=== PATIENT | female | born 1995 | race Caucasian/White ===

== ENCOUNTER → 2017-06-22 | Outpatient (CLI) | payer OTHER ==
--- NOTE | 2017-06-22 10:21 | MR ---
EXAMINATION TYPE: MR brain wo/w con DATE OF EXAM: 06/22/2017 COMPARISON: NONE HISTORY: 21-year-old female with headache TECHNIQUE: Multiplanar, multisequence images of the brain and brainstem were acquired before and aft er administration of 6.5 mL IV Gadavist. Diffusion weighted imaging is performed. FINDINGS: No evidence for acute infarction, hemorrhage, mass, mass effect, midline shift, herniation, effacemen t of basal cisterns, or extra-axial fluid collection. The ventricles and sulci are age-appropriate. Major intracranial flow voids are intact. T2/FLAIR weighted sequences show no white matter signal abnormality. Midline structures demonstrate normal morphology. The craniocervical junction is normal. Post contrast images demonstrate no evidence of pathologic enhancement. Dural venous sinuses are pat ent. There is mild mucosal thickening in the ethmoid air cells. Rightward nasal septal deviation. Mastoid air cells well pneumatized. The globes are intact. IMPRESSION: 1. No intracranial abnormality seen. 2. Mild chronic ethmoid sinus disease and slight rightward nasal septal deviation.
== END | disposition home or self-care (01) ==
LOC: RADMRIMAIN 07:54
PROVIDERS: ATTEND Family Medicine
DX: J34.2 Deviated nasal septum (principal); R51 Headache
CPT/HCPCS: 70553; A9581

== ENCOUNTER 2019-05-04 17:09 | Outpatient (CLI) | payer BC, OTHER ==
[2019-05-04 18:25] VITALS: BP 112/62; PULSE 75; RESP 16; TEMP 97.3
--- NOTE | 2019-05-06 07:54 | P.MSEPDOC ---
Presenting Problems - Arrival Data Date of Arrival on Unit: 05/04/19 Time of Arrival on Unit: 17:09 Mode of Transport: Ambulatory - Complaint OB-Reason for Admission/Chief Complaint: Rule Out PROM Medical History - Information : 1 Para: 0 Term: 0 : 0 Abortions: Spontaneous or Elective: 0 Number of Living Children: 0 - Gestational Age Gestational Age by SHARAN (wks/days): 37 Weeks and 3 Days - History Complications: Other Comment: chicken pox during 12/13 Review of Systems - Review of Systems Constitutional: No problems Breast: No problems ENT: No problems Cardiovascular: No problems Respiratory: No problems Gastrointestinal: No problems Genitourinary: No problems Musculoskeletal: No problems Neurological: No problems Skin: No problems Vital Signs - Temperature Temperature: 97.3 F Temperature Source: Oral - Pulse Right Sitting Brachial Pulse Rate: 75 Pulse Assessment Method: Automatic Cuff - Respirations Respiratory Rate: 16 - Blood Pressure Right Arm Blood Pressure: 112/62 Blood Pressure Mean: 78 Blood Pressure Source: Automatic Cuff Medical Screen Scoring (Pre) - Cervical Exam Dilation: 1-3 cm = 1 Effacement: More than 50% = 2 Membranes: Intact - Uterine Contractions Frequency: > 5 minutes apart = 1 Duration: N/A Intensity: N/A - Maternal Vital Signs Maternal Temperature: N/A Maternal Blood Pressure: N/A Signs of Preeclampsia: N/A Maternal Respirations: N/A - Maternal Trauma Maternal Trauma: N/A - Assessment - Baby A Baseline FHR: 140 Heart Rate - NICHD Category: Category I (Normal) = 0 NST: Reactive Position: N/A Station: N/A - Total Score - Baby A Total Score - Baby A: 4 - Total Score - Baby B Total Score - Baby B: 4 - Total Score - Baby C Total Score - Baby C: 4 - Level of Risk - Baby A Level of Risk - Baby A: Low (0-5) - Level of Risk - Baby B Level of Risk - Baby B: Low (0-5) - Level of Risk - Baby C Level of Risk - Baby C: Low (0-5) Physician Notification (Pre) - Physician Notified Physician Notified Date: 05/04/19 Physician Notified Time: 18:08 New Order Received: Yes (discharged home with instructions) Disposition - Disposition OB Disposition: Discharge to home, Written follow up instructions reviewed Discharge Date: 05/04/19 Discharge Time: 18:15 I agree with the RN Medical Screening Exam: Yes Risk & Benefit of care provided described in d/c instruction: Yes Diagnosis: FALSE LABOR AT OR AFTER 37 COMPLETED WEEKS OF GESTATION
== END 2019-05-04 18:15 | disposition home or self-care (01) ==
LOC: FBPOP 17:09
PROVIDERS: ATTEND Obstetrics & Gynecology
DX: O47.1 False labor at or after 37 completed weeks of gestation (principal); Z3A.37 37 weeks gestation of pregnancy
CPT/HCPCS: 59025; 84112; 99213

== ENCOUNTER 2019-05-15 04:45 | Inpatient (IN) | payer BC, OTHER ==
[2019-05-15] MEDS ORDERED: TERBUTALINE 1 MG/ML VIAL SQ PRN (05:03)
[2019-05-15] MEDS ORDERED: OXYTOCIN 10 UNIT/ML 1 ML VIAL IM PRN (05:03)
[2019-05-15] MEDS ORDERED: OXYTOCIN 30 UNITS/500 ML NS 30 UNIT in SALINE 1 500ML.BAG IV SCH (05:03)
[2019-05-15] MEDS ORDERED: METHYLERGONOVINE 0.2 MG/ML 1 ML AMP IM PRN (05:03)
[2019-05-15] MEDS ORDERED: CARBOPROST TROMETHAMINE 250 MCG/ML 1 ML AMP IM PRN (05:03)
[2019-05-15] MEDS ORDERED: LIDOCAINE 0.5% (PF) 5 MG/ML (50 ML SDV) SQ PRN (05:03)
[2019-05-15 05:13] VITALS: BMI 24.1
[2019-05-15] MEDS: LACTATED RINGERS 1,000 ML IV SCH ×3 (05:15→13:29)
[2019-05-15 05:32] LABS: Basophils # (A) 0.1 k/uL (0-0.2); Basophils % (A) 1 %; Eosinophils # (A) 0.1 k/uL (0-0.7); Eosinophils % (A) 1 %; HCT 38.3 % (34.0-46.0); HGB 12.8 gm/dL (11.4-16.0); Lymphocytes # (A) 1.4 k/uL (1.0-4.8); Lymphocytes % (A) 16 %; MCH 28.2 pg (25.0-35.0); MCHC 33.4 g/dL (31.0-37.0); MCV 84.4 fL (80.0-100.0); Mean Platelet Volume 8.8; Monocytes # (A) 0.6 k/uL (0-1.0); Monocytes % (A) 7 %; Neutrophils # (A) 6.8 k/uL (1.3-7.7); Neutrophils % (A) 74 %; Platelet Count 182 k/uL (150-450); RBC 4.53 m/uL (3.80-5.40); RDW 13.6 % (11.5-15.5); WBC 9.2 k/uL (3.8-10.6)
--- NOTE | 2019-05-15 06:27 | P.HPOB ---
History of Present Illness H&P Date: 05/15/19 Chief Complaint: Contractions This patient is a pleasant 23-year-old 1 para 0 female estimated date of confinement 05/22/2019 estimated gestational age 39 weeks who presented to labor and delivery this morning with complaints of contractions. Patient's found to be 5 cm dilated in active labor. Patient's care is such that she transferred to [place] at 23 weeks. She did report an exposure to varicella and therefore titers were done which showed a positive IgM. She was sent to maternal- medicine and evaluation there was negative and they did not have concerns. Patient had a previous parasellar vaccine. Level III ultrasound was normal and patient did do nonstress testing throughout the . Review of Systems Genitourinary: Reports Menstruation: Reports amenorrhea Past Medical History Additional Past Medical History / Comment(s): migraines History of Any Multi-Drug Resistant Organisms: None Reported Past Surgical History: No Surgical Hx Reported Additional Past Surgical History / Comment(s): [place] tooth extraction Past Anesthesia/Blood Transfusion Reactions: No Reported Reaction Past Psychological History: No Psychological Hx Reported Smoking Status: Never smoker Past Alcohol Use History: Occasional Additional Past Alcohol Use History / Comment(s): ETOH is social use only Past Drug Use History: None Reported - Past Family History Mother Family Medical History: Cancer Additional Family Medical History / Comment(s): Breast Cancer Medications and Allergies Home Medications Medication Instructions Recorded Confirmed Type Pnv No.95/Ferrous Fum/Folic AC 1 tab PO DAILY 05/04/19 05/15/19 History [ Multivitamin Tablet] Allergies Allergy/AdvReac Type Severity Reaction Status Date / Time No Known Allergies Allergy Verified 05/15/19 05:03 Exam Vital Signs Temp Pulse Resp BP 05/15/19 05:06 97.3 F L 65 16 109/65 Intake and Output 05/14/19 05/14/19 05/15/19 14:59 22:59 06:59 Other: # Voids 1 Weight 78.471 kg - OBG Physical Exam Abdomen: bowel sounds normal, no diffuse tenderness, no bruit present, no guarding noted, no hepatomegaly, no splenomegaly, no mass Vulva: both: normal Vagina: normal moisture, no discharge Cervix: no lesion (Cervix is 5 complete and -1 station), no discharge Uterus: enlarged (Fundal height is 39 cm) Results blood work shows she is O positive, rubella immune, RPR is nonreactive, HIV is nonreactive, hepatitis B was negative, ultrasounds have shown normal anatomy. She did have a marginal previa early in the which completely resolved. Patient's group B strep was negative, Varicella titers as above Result Diagrams: 05/15/19 05:10 Assessment and Plan Assessment: This is a pleasant 23-year-old 1 para 0 female 39 weeks gestation in active labor. Plan is anticipate normal spontaneous vaginal delivery. (1) 39 weeks gestation of Current Visit: Yes Status: Acute Code(s): Z3A.39 - 39 WEEKS GESTATION OF P CIARAN SNOMED Code(s): 56958573 (2) Normal labor Current Visit: Yes Status: Acute Code(s): O80 - ENCOUNTER FOR FULL-TERM UNCOMPLICATED DELIVERY; Z37.9 - OUTCOME OF DELIVERY, UNSPECIFIED SNOMED Code(s): 66257926
[2019-05-15] MEDS ORDERED: fentaNYL (PF) 50 MCG/ML 5 ML AMP ONE (06:45)
[2019-05-15] MEDS ORDERED: SODIUM CHLORIDE 0.9% 100 ML BAG ONE (06:45)
[2019-05-15] MEDS ORDERED: ROPIVACAINE 5MG/ML 20ML VIAL ONE (06:45)
[2019-05-15] MEDS ORDERED: ROPIVACAINE 100 MG, fentaNYL (PF) 200 MCG in SODIUM CHLORIDE 0.9% 76 ML EPIDURAL ONE (07:54)
[2019-05-15] MEDS ORDERED: diphenhydrAMINE 50 MG/ML 1 ML VIAL IVP PRN (13:27)
[2019-05-15] MEDS ORDERED: LANOLIN CREAM 5 GM TUBE TOPICAL PRN (13:27)
[2019-05-15] MEDS ORDERED: HYDROCORTISONE 2.5% RECTAL CREAM 30 GM TUBE RECTAL PRN (13:27)
[2019-05-15] MEDS ORDERED: BISACODYL 10 MG SUPP RECTAL PRN (13:27)
[2019-05-15] MEDS ORDERED: OXYTOCIN 20 UNITS/1000 ML NS 1,000 ML IV SCH (13:27)
[2019-05-15] MEDS ORDERED: BENZOCAINE/MENTHOL SPRAY 1 GM/SPRAY AEROSOL TOPICAL PRN (13:27)
[2019-05-15] MEDS ORDERED: diphenhydrAMINE 25 MG CAP PO PRN (13:27)
[2019-05-15] MEDS ORDERED: SIMETHICONE 80 MG CHEWABLE PO PRN (13:27)
[2019-05-15] MEDS ORDERED: WITCH HAZEL 1 EACH MED..PAD TOPICAL PRN (13:27)
[2019-05-15] MEDS ORDERED: ZOLPIDEM 5 MG TAB PO PRN (13:27)
--- NOTE | 2019-05-15 13:28 | P.PROBDLV ---
Vaginal Delivery Note - . Vaginal Delivery Note: Normal spontaneous vaginal delivery viable male Apgars 9 and 9 delivery time is 1310. Please see dictated H&P for intimate details of this patient's admission. Brief summary this is a pleasant 23-year-old 1 para 0 female 39 weeks gestation admitted to labor and delivery in active labor. Patient is 5 cm dilated has artificial rupture membranes for clear fluid. Labor progresses and she does get an epidural for pain control. Patient gets to complete pushes for approximately 45 minutes. Patient pushes the head to the perineum the posterior perineum is supported we have controlled delivery of the infant's head over the intact perineum mouth and nares are bulb suctioned at this time. There is no evidence of nuchal cord. With gentle downward traction we then have deliver the anterior and posterior shoulder and rest this infant's body. This is a vigorous viable male infant Apgars 9 and 9 delivery time is 1310 hrs. After delivery of the is late on the mother's abdomen. Umbilical cords locked quit pulsating. Sent doubly clamped and cut appears to be trivascular. Placenta spontaneously delivered intact. Estimated blood loss 150 mL. Inspection of perineum shows second-degree laceration which is repaired using a 3-0 Vicryl usual fashion. Excellent reapproximation is noted. All counts are correct 3. There are no complications. and mother are stable delivery room.
[2019-05-15] MEDS: IBUPROFEN 600 MG TAB PO PRN ×2 (15:20→22:46)
[2019-05-15] MEDS: SENNOSIDES-DOCUSATE SODIUM 1 EACH TAB PO SCH ×2 (16:23→19:29)
[2019-05-15] MEDS: ACETAMINOPHEN TAB 325 MG TAB PO PRN (19:30)
[2019-05-16] MEDS: ACETAMINOPHEN TAB 325 MG TAB PO PRN ×2 (02:30→11:27)
--- NOTE | 2019-05-16 06:32 | P.PNOBGVD ---
Subjective - Subjective Patient reports: Reports appetite normal, Reports voiding normally, Reports pain well controlled, Reports ambulating normally : doing well Objective - Latest Vital Signs Latest vital signs: Vital Signs Temp Pulse Resp BP 05/15/19 23:55 97.9 F 72 16 115/57 05/15/19 20:00 98.1 F 78 16 103/65 05/15/19 15:29 98.0 F 85 16 105/63 05/15/19 14:59 83 16 110/62 05/15/19 14:29 80 16 106/57 05/15/19 14:14 80 16 111/62 05/15/19 13:59 80 16 110/58 05/15/19 13:44 74 16 108/58 05/15/19 13:29 97.5 F L 83 16 105/64 Intake and Output 05/15/19 05/15/19 05/16/19 14:59 22:59 06:59 Intake Total 1900 Balance 1900 Intake: IV 900 Invasive Line 1 900 Intake, IV Titration 1000 Amount Lactated Ringers 1,000 ml 1000 @ 125 mls/hr IV .Q8H [facility] Rx#:[id number] Other: # Voids 1 1 - Exam Lungs: bilateral: normal Chest: Normal S1, Normal S2 Extremities: Present: normal Abdomen: Present: normal appearance, soft Uterus: Present: normal, firm Assessment and Plan Assessment: Patient is resting without complaints. Vital signs are stable she is afebrile. Uterus is firm nontender she's having normal lochia. Perineum appears normal. I impression is a normal course. Patient does request to go home today she felt be stable for discharge home follow up with me in 6 weeks. (1) 39 weeks gestation of Current Visit: Yes Status: Acute Code(s): Z3A.39 - 39 WEEKS GESTATION OF SNOMED Code(s): 84138128 (2) Normal labor Current Visit: Yes Status: Acute Code(s): O80 - ENCOUNTER FOR FULL-TERM UNCOMPLICATED DELIVERY; Z37.9 - OUTCOME OF DELIVERY, UNSPECIFIED SNOMED Code(s): 33387343
--- NOTE | 2019-05-16 06:36 | P.DS ---
Providers Date of admission: 05/15/19 04:45 Expected date of discharge: 05/16/19 Attending physician: Russel Laguna Primary care physician: Stated None - Discharge Diagnosis(es) (1) 39 weeks gestation of Current Visit: Yes Status: Acute (2) Normal labor Current Visit: Yes Status: Acute Hospital Course: Please see dictated H&P for intimate details of this patient's admission. Brief summary this is a pleasant 23-year-old 1 para 0 female 39 weeks gestation admitted to labor and delivery in active labor. Patient was on have a vaginal delivery viable male infant. Please see dictated delivery note. day 1 patient wishes to go home was felt be stable for discharge home follow up with me in 6 weeks. Procedures: Normal spontaneous vaginal delivery Patient Condition at Discharge: Good Plan - Discharge Summary New Discharge Prescriptions: New Ibuprofen [Motrin] 600 mg PO Q6HR PRN #40 tab PRN Reason: Mild Pain Or Fever >= 100.5 No Action Pnv No.95/Ferrous Fum/Folic AC [ Multivitamin Tablet] 1 tab PO DAILY Discharge Medication List Pnv No.95/Ferrous Fum/Folic AC [ Multivitamin Tablet] 1 tab PO DAILY 05/04/19 [History] Ibuprofen [Motrin] 600 mg PO Q6HR PRN #40 tab 05/16/19 [Rx] Follow up Appointment(s)/Referral(s): Russel Laguna MD [STAFF PHYSICIAN] - 06/28/19 9:30 am Patient Instructions/Handouts: Vaginal Delivery (DC) Activity/Diet/Wound Care/Special Instructions: No intercourse or anything per vagina for 6 weeks. Please call if any fever, chills, excessive vaginal bleeding, and/or abdominal pain.
[2019-05-16] MEDS: SENNOSIDES-DOCUSATE SODIUM 1 EACH TAB PO SCH (08:03)
[2019-05-16] MEDS: IBUPROFEN 600 MG TAB PO PRN ×2 (08:04→13:33)
[2019-05-16 09:57] VITALS: BP 112/72; PULSE 81; RESP 20; TEMP 98.2
== END 2019-05-16 16:00 | disposition home or self-care (01) | DRG 807 ==
LOC: 4FBP 04:45
PROVIDERS: ADMIT Obstetrics & Gynecology; ATTEND Obstetrics & Gynecology
PROC: 10E0XZZ Delivery of Products of Conception, External Approach (ICD-10-PCS; principal; 2019-05-15)
PROC: 0KQM0ZZ Repair Perineum Muscle, Open Approach (ICD-10-PCS; 2019-05-15)
DX: O99.354 Diseases of the nervous system complicating childbirth (principal); Z37.0 Single live birth; G43.909 Migraine, unspecified, not intractable, without status migrainosus; O70.1 Second degree perineal laceration during delivery; Z3A.39 39 weeks gestation of pregnancy; Z80.3 Family history of malignant neoplasm of breast
CPT/HCPCS: 85025; 86850; 86900; 86901

== ENCOUNTER 2019-06-17 20:25 | Emergency (ER) | payer BC, OTHER ==
[2019-06-17 20:55] VITALS: TEMP 98.9
[2019-06-17] MEDS ORDERED: SODIUM CHLORIDE 0.9% 1,000 ML IV STA (21:08)
[2019-06-17] MEDS ORDERED: KETOROLAC 30 MG/ML 1 ML VIAL IVP STA (21:08)
--- NOTE | 2019-06-17 21:19 | ED ---
General Adult HPI - General Chief complaint: Abdominal Pain Stated complaint: Abd pain Time Seen by Provider: 06/17/19 20:56 Source: patient, family, RN notes reviewed Mode of arrival: ambulatory Limitations: no limitations - History of Present Illness Initial comments: 23-year-old female with a past medical history of migraine presents to the emergency department for a chief complaint of right lower quadrant abdominal pain. States this has been ongoing for a few days. States it feels like it is cramping in nature. Patient states she is having a bit of brown vaginal discharge. Patient is about one month with a vaginal delivery. Den ies fevers or chills. Denies dysuria. Denies NVD. States the pain radiates to the right side of her low back.Patient has no other complaints at this time including shortness of breath, chest pain, nausea or vomiting, headache, or visual changes. - Related Data Home Medications Medication Instructions Recorded Confirmed Pnv No.95/Ferrous Fum/Folic AC 1 tab PO DAILY 05/04/19 05/15/19 [ Multivitamin Tablet] Previous Rx's Medication Instructions Recorded Ibuprofen [Motrin] 600 mg PO Q6HR PRN #40 tab 05/16/19 Allergies Allergy/AdvReac Type Severity Reaction Status Date / Time No Known Allergies Allergy Verified 06/17/19 20:55 Review of Systems ROS Statement: Those systems with pertinent positive or pertinent negative responses have been documented in the HPI. ROS Other: All systems not noted in ROS Statement are negative. Past Medical History Additional Past Medical History / Comment(s): migraines History of Any Multi-Drug Resistant Organisms: None Reported Past Surgical History: No Surgical Hx Reported Additional Past Surgical History / Comment(s): [employer] tooth extraction Past Anesthesia/Blood Transfusion Reactions: No Reported Reaction Past Psychological History: No Psychological Hx Reported Smoking Status: Never smoker Past Alcohol Use History: Occasional Past Drug Use History: None Reported - Past Family History Mother Family Medical History: Cancer Additional Family Medical History / Comment(s): Breast Cancer General Exam Limitations: no limitations General appearance: alert, in no apparent distress Head exam: Present: atraumatic, normocephalic, normal inspection Eye exam: Present: normal appearance, PERRL, EOMI. Absent: scleral icterus, conjunctival injection, periorbital swelling ENT exam: Present: normal exam, mucous membranes moist Neck exam: Present: normal inspection, full ROM. Absent: tenderness, meningismus, lymphadenopathy Respiratory exam: Present: normal lung sounds bilaterally. Absent: respiratory distress, wheezes, rales, rhonchi, stridor Cardiovascular Exam: Present: regular rate, normal rhythm, normal heart sounds. Absent: systolic murmur, diastolic murmur, rubs, gallop, clicks GI/Abdominal exam: Present: soft, normal bowel sounds. Absent: distended, tenderness (no significant tenderness to palpation of the abdomen. no rlq tendenress. no guarding or rebound), guarding, rebound, rigid Neurological exam: Present: alert Course Vital Signs 06/17/19 06/17/19 20:50 23:24 Temperature 98.9 F Pulse Rate 67 59 L Respiratory 20 16 Rate Blood Pressure 114/76 122/76 O2 Sat by Pulse 99 98 Oximetry Medical Decision Making - Medical Decision Making CBC CMP unremarkable. Urinalysis does show 20 white blood cells. Patient does not have any dysuria. This will be cultured. Ultrasound of the pelvis was obtained which shows small amount of free fluid in the cul-de-sac that could be physiologic. No evidence of torsion or adnexal mass. CT abdomen and pelvis with contrast was obtained to rule out appendicitis. This does show a normal appendix. However there is a distended distal small bowel and retained fecal material consistent with constipation. There is also minimal fat stranding in the pericolic fat at the terminal ileum consistent with mild nonspecific inflammatory process. Image and report were reviewed by both myself and Dr. Lul storey. Patient was given pain medication and has significant improvement in pain. She has no fever white blood cell count. At this time patient is stable for discharge. However recommended she return here if symptoms are worsening or if she has any fevers. Recommend she follow up with a GI doctor, referral given. Patient requesting pain medication. Patient is breast feeding but states she will formula feed for the next day. She will go home with Tylenol 3. - Lab Data Result diagrams: 06/17/19 21:21 06/17/19 21:21 Lab Results 06/17/19 06/17/19 06/17/19 Range/Units 21:21 21:21 21:21 WBC 6.4 (3.8-10.6) k/uL RBC 4.78 (3.80-5.40) m/uL Hgb 13.6 (11.4-16.0) gm/dL Hct 40.4 (34.0-46.0) % MCV 84.5 (80.0-100.0) fL MCH 28.4 (25.0-35.0) pg MCHC 33.6 (31.0-37.0) g/dL RDW 12.7 (11.5-15.5) % Plt Count 225 (150-450) k/uL Neutrophils % 72 % Lymphocytes % 15 % Monocytes % 8 % Eosinophils % 3 % Basophils % 0 % Neutrophils # 4.6 (1.3-7.7) k/uL Lymphocytes # 0.9 L (1.0-4.8) k/uL Monocytes # 0.5 (0-1.0) k/uL Eosinophils # 0.2 (0-0.7) k/uL Basophils # 0.0 (0-0.2) k/uL Sodium 140 (137-145) mmol/L Potassium 3.9 (3.5-5.1) mmol/L Chloride 107 (98-107) mmol/L Carbon Dioxide 27 (22-30) mmol/L Anion Gap 6 mmol/L BUN 8 (7-17) mg/dL Creatinine 0.66 (0.52-1.04) mg/dL Est GFR (CKD-EPI)AfAm >90 (>60 ml/min/1.73 sqM) Est GFR (CKD-EPI)NonAf >90 (>60 ml/min/1.73 sqM) Glucose 90 (74-99) mg/dL Calcium 9.4 (8.4-10.2) mg/dL Total Bilirubin 0.4 (0.2-1.3) mg/dL AST 27 (14-36) U/L ALT 19 (4-34) U/L Alkaline Phosphatase 72 (38-126) U/L Total Protein 7.7 (6.3-8.2) g/dL Albumin 4.4 (3.5-5.0) g/dL Amylase 57 (30-110) U/L Lipase 47 (23-300) U/L Urine Color Urine Appearance (Clear) Urine pH (5.0-8.0) Ur Specific [place] (1.001-1.035) Urine Protein (Negative) Urine Glucose (UA) (Negative) Urine Ketones (Negative) Urine Blood (Negative) Urine Nitrite (Negative) Urine Bilirubin (Negative) Urine Urobilinogen (<2.0) mg/dL Ur Leukocyte Esterase (Negative) Urine RBC (0-5) /hpf Urine WBC (0-5) /hpf Ur Squamous Epith Cells (0-4) /hpf Urine Mucus (None) /hpf Urine HCG, Qual Not Detected (Not Detectd) 06/17/19 Range/Units 21:21 WBC (3.8-10.6) k/uL RBC (3.80-5.40) m/uL Hgb (11.4-16.0) gm/dL Hct (34.0-46.0) % MCV (80.0-100.0) fL MCH (25.0-35.0) pg MCHC (31.0-37.0) g/dL RDW (11.5-15.5) % Plt Count (150-450) k/uL Neutrophils % % Lymphocytes % % Monocytes % % Eosinophils % % Basophils % % Neutrophils # (1.3-7.7) k/uL Lymphocytes # (1.0-4.8) k/uL Monocytes # (0-1.0) k/uL Eosinophils # (0-0.7) k/uL Basophils # (0-0.2) k/uL Sodium (137-145) mmol/L Potassium (3.5-5.1) mmol/L Chloride (98-107) mmol/L Carbon Dioxide (22-30) mmol/L Anion Gap mmol/L BUN (7-17) mg/dL Creatinine (0.52-1.04) mg/dL Est GFR (CKD-EPI)AfAm (>60 ml/min/1.73 sqM) Est GFR (CKD-EPI)NonAf (>60 ml/min/1.73 sqM) Glucose (74-99) mg/dL Calcium (8.4-10.2) mg/dL Total Bilirubin (0.2-1.3) mg/dL AST (14-36) U/L ALT (4-34) U/L Alkaline Phosphatase (38-126) U/L Total Protein (6.3-8.2) g/dL Albumin (3.5-5.0) g/dL Amylase (30-110) U/L Lipase (23-300) U/L Urine Color Yellow Urine Appearance Clear (Clear) Urine pH 7.0 (5.0-8.0) Ur Specific [place] 1.021 (1.001-1.035) Urine Protein Negative (Negative) Urine Glucose (UA) Negative (Negative) Urine Ketones Negative (Negative) Urine Blood Small H (Negative) Urine Nitrite Negative (Negative) Urine Bilirubin Negative (Negative) Urine Urobilinogen <2.0 (<2.0) mg/dL Ur Leukocyte Esterase Large H (Negative) Urine RBC 2 (0-5) /hpf Urine WBC 20 H (0-5) /hpf Ur Squamous Epith Cells 6 H (0-4) /hpf Urine Mucus Rare H (None) /hpf Urine HCG, Qual (Not Detectd) Disposition Clinical Impression: Abdominal pain, Inflammation of small intestine Disposition: HOME SELF-CARE Condition: Good Instructions (If sedation given, give patient instructions): Abdominal Pain (ED) Additional Instructions: Please take Tylenol 3 for pain. Please follow-up with primary care in 1-2 days. If you're having worsening symptoms or fevers return to the emergency department. Otherwise follow-up with GI as well. Is patient prescribed a controlled substance at d/c from ED?: No Referrals: Power Jaramillo DO [Primary Care Provider] - 1-2 days Merrick Perez MD [STAFF PHYSICIAN] - 1-2 days Time of Disposition: 23:40
[2019-06-17 21:37] LABS: Basophils % (A) 0 %; Eosinophils # (A) 0.2 k/uL (0-0.7); Eosinophils % (A) 3 %; HCT 40.4 % (34.0-46.0); HGB 13.6 gm/dL (11.4-16.0); Lymphocytes # (A) 0.9 k/uL (1.0-4.8); Lymphocytes % (A) 15 %; MCH 28.4 pg (25.0-35.0); MCHC 33.6 g/dL (31.0-37.0); MCV 84.5 fL (80.0-100.0); Monocytes # (A) 0.5 k/uL (0-1.0); Monocytes % (A) 8 %; Neutrophils # (A) 4.6 k/uL (1.3-7.7); Neutrophils % (A) 72 %; Platelet Count 225 k/uL (150-450); RBC 4.78 m/uL (3.80-5.40); RDW 12.7 % (11.5-15.5); WBC 6.4 k/uL (3.8-10.6)
[2019-06-17 21:48] LABS: Appearance,Urine Clear (Clear); Bilirubin,Urine Negative (Negative); Blood,Urine Small (Negative); Color,Urine Yellow; Glucose,Urine (UA) Negative (Negative); Ketones,Urine Negative (Negative); Leukocyte Esterase,Urine Large (Negative); Mucus,Urine Rare /hpf; Nitrite,Urine Negative (Negative); Protein,Urine Negative (Negative); RBC,Urine 2 /hpf (0-5); Specific Gravity,Urine 1.021 (1.001-1.035); Squamous Epithelial Cell,Urine 6 /hpf (0-4); Urobilinogen,Urine <2.0 mg/dL (<2.0); WBC,Urine 20 /hpf (0-5)
[2019-06-17 21:50] LABS: ALT 19 U/L (4-34); AST 27 U/L (14-36); African American GFR (CKD) >90 (>60 ml/min/1.73 sqM); Albumin 4.4 g/dL (3.5-5.0); Alkaline Phosphatase 72 U/L (38-126); Amylase 57 U/L (30-110); Anion Gap 6 mmol/L; Blood Urea Nitrogen 8 mg/dL (7-17); Calcium 9.4 mg/dL (8.4-10.2); Carbon Dioxide 27 mmol/L (22-30); Chloride 107 mmol/L (98-107); Glucose 90 mg/dL (74-99); Non-African American GFR(CKD) >90 (>60 ml/min/1.73 sqM); Potassium 3.9 mmol/L (3.5-5.1); Sodium 140 mmol/L (137-145); Total Bilirubin 0.4 mg/dL (0.2-1.3); Total Protein 7.7 g/dL (6.3-8.2)
--- NOTE | 2019-06-17 22:05 | US ---
EXAMINATION TYPE: US pelvic complete DATE OF EXAM: 06/17/2019 COMPARISON: NONE CLINICAL HISTORY: pain, RLQ, pp 1 month. TECHNIQUE: . Transabdominal sonographic images of the pelvis were acquired. Transvaginal sonographi c images were medically necessary to better assess the following anatomy: Date of LMP: EXAM MEASUREMENTS: Uterus: 7.7 x 4.6 x 5.8 cm Endometrial Stripe: 0.4 cm Right Ovary: 2.4 x 1.7 x 0.9 cm Left Ovary: 2.9 x 1.5 x 1.4 cm 1. Uterus: Anteverted wnl 2. Endometrium: 2 mm of fluid within the endometrium 3. Right Ovary: wnl 4. Left Ovary: wnl Spectral, color and waveform doppler imaging shows good arterial and venous flow within the ovaries ; there is no evidence for ovarian torsion. 5. Bilateral Adnexa: wnl 6. Posterior cul-de-sac: mild free fluid IMPRESSION: There is small amount of free fluid in the cul-de-sac that could be physiologic. No adnexal mass. No evidence of ovarian torsion.
[2019-06-17] MEDS ORDERED: MORPHINE SULFATE 4 MG/ML SYRINGE IVP STA (22:14)
--- NOTE | 2019-06-17 23:14 | CT ---
EXAMINATION TYPE: CT abdomen pelvis w con DATE OF EXAM: 06/17/2019 COMPARISON: None . HISTORY: Patient presents with RLQ pain. CT DLP: 769.8 mGycm Automated exposure control for dose reduction was used. CONTRAST: Performed with IV Contrast, patient injected with 100mL mL of Isovue 300. multiple axial sections were obtained from the diaphragm to the floor the pelvis with intravenous con trast There is minimal atelectasis at the posterior lung bases. Heart size is normal. There is no pericardi al effusion. Liver spleen stomach pancreas gallbladder appear normal. Bile ducts are not dilated. There is no adrenal mass. Kidneys show satisfactory contrast opacification. There is no hydronephrosi s. There is mild ectasia of the right ureter but no obstructing calculus seen. Bladder distends jeanine hly. There is no inguinal hernia. Uterus is anteverted. There is no free fluid in the pelvis. Lumbar spine is intact. Bony pelvis is intact. There is air in the appendix which appears normal. There is some retained fecal material in the right colon. There is mild enlargement of the distal ileum with fecal material. There is minimal fat stran ding in the omental fat anterior to the terminal ileum. There are some distended fluid-filled loops o f distal small bowel that measure up to 2.6 cm. There is no free air. There is no ascites. IMPRESSION: Distended distal small bowel and retained fecal material consistent with some constipation. Minimal f at stranding in the pericolic fat at the terminal ileum consistent with mild nonspecific inflammatory process. No intestinal wall thickening. Normal appendix.
[2019-06-17 23:28] VITALS: BP 122/76; PULSE 59; RESP 16
[2019-06-17] MEDS ORDERED: ACET/COD 300 MG/30 MG STARTER PACK 6 TAB BTL PO STA (23:40)
== END 2019-06-18 | disposition home or self-care (01) ==
LOC: EC 20:25
DX: O99.63 Diseases of the digestive system complicating the puerperium (principal); K50.00 Crohn's disease of small intestine without complications; O99.89 Other specified diseases and conditions complicating pregnancy, childbirth and the puerperium; N89.8 Other specified noninflammatory disorders of vagina
CPT/HCPCS: 99284; 96374; 96375; 96361; 36415; 80053; 82150; 83690; 85025; 81001; 81025; 87086; 93975; 76856; 74177; J2270; J1885; Q9967

== ENCOUNTER 2019-06-18 08:44 | Inpatient (IN) | payer BC, OTHER ==
[2019-06-18] MEDS ORDERED: SODIUM CHLORIDE 0.9% 1,000 ML IV STA ×2 (09:38→14:27)
[2019-06-18] MEDS ORDERED: KETOROLAC 30 MG/ML 1 ML VIAL IVP STA (09:38)
[2019-06-18] MEDS ORDERED: PANTOPRAZOLE 40 MG/10 ML VIAL IVP STA (09:38)
[2019-06-18] MEDS ORDERED: MORPHINE SULFATE 4 MG/ML SYRINGE IV STA (09:38)
[2019-06-18] MEDS ORDERED: SODIUM CHLORIDE 0.9% 2,000 ML IV STA (09:38)
--- NOTE | 2019-06-18 09:43 | ED ---
Abdominal Pain HPI - General Chief Complaint: Abdominal Pain Stated Complaint: abd pain Time Seen by Provider: 06/18/19 09:00 Source: patient, RN notes reviewed, old records reviewed Mode of arrival: ambulatory Limitations: no limitations - History of Present Illness Initial Comments: 23-year-old female presents today for evaluation for complaints of right-sided abdominal pain. Patient states that she was here in the emergency department last night. Had full evaluation clean ultrasound and CAT scan. His are found to be negative for any acute changes. Her blood work was unremarkable. Patient is discharged home with Tylenol with codeine at that time continued to have some pain in his reevaluate coming back for evaluation this morning. Patient denies any nausea or vomiting. Patient states that the pain is sharp and stabbing. She reports the pain is worse than her contractions when she was in labor. - Related Data Home Medications Medication Instructions Recorded Confirmed Pnv No.95/Ferrous Fum/Folic AC 1 tab PO HS 05/04/19 06/18/19 [ Multivitamin Tablet] Acetaminophen-Codeine 300-30mg 1 tab PO Q6H PRN 06/18/19 06/18/19 [Tylenol w/codeine #3] Previous Rx's Medication Instructions Recorded Ibuprofen [Motrin] 600 mg PO Q6HR PRN #40 tab 05/16/19 Allergies Allergy/AdvReac Type Severity Reaction Status Date / Time No Known Allergies Allergy Verified 06/18/19 11:42 Review of Systems ROS Statement: Those systems with pertinent positive or pertinent negative responses have been documented in the HPI. ROS Other: All systems not noted in ROS Statement are negative. Past Medical History Additional Past Medical History / Comment(s): migraines History of Any Multi-Drug Resistant Organisms: None Reported Past Surgical History: No Surgical Hx Reported Additional Past Surgical History / Comment(s): [place] tooth extraction Past Anesthesia/Blood Transfusion Reactions: No Reported Reaction Past Psychological History: No Psychological Hx Reported Smoking Status: Never smoker Past Alcohol Use History: Occasional Past Drug Use History: None Reported - Past Family History Mother Family Medical History: Cancer Additional Family Medical History / Comment(s): Breast Cancer General Exam - General Exam Comments Initial Comments: 23-year-old female. Crying. She appears in moderate discomfort. Limitations: no limitations Head exam: Present: atraumatic, normocephalic, normal inspection Eye exam: Present: normal appearance, PERRL, EOMI. Absent: scleral icterus, conjunctival injection, periorbital swelling ENT exam: Present: normal exam, mucous membranes moist Neck exam: Present: normal inspection. Absent: tenderness, meningismus, lymphadenopathy Respiratory exam: Present: normal lung sounds bilaterally. Absent: respiratory distress, wheezes, rales, rhonchi, stridor GI/Abdominal exam: Present: soft, normal bowel sounds. Absent: distended, tenderness, guarding, rebound, rigid Extremities exam: Present: normal inspection, full ROM, normal capillary refill. Absent: tenderness, pedal edema, joint swelling, calf tenderness Back exam: Present: normal inspection Neurological exam: Present: alert, oriented X3, CN II-XII intact Psychiatric exam: Present: normal affect, normal mood Skin exam: Present: warm, dry, intact, normal color. Absent: rash Course Vital Signs 06/18/19 08:51 Temperature 98.4 F Pulse Rate 73 Respiratory 18 Rate Blood Pressure 112/69 O2 Sat by Pulse 98 Oximetry Medical Decision Making - Medical Decision Making 23-year-old female presents today for evaluation for right-sided upper abdominal pain. Patient was seen in emergency Department 24 hours ago, full evaluation is unremarkable. Repeat lab work is obtained. She does have evidence of acute pancreatitis. At lipase is increased at 11 2000 and less than 12 hours from her first visit. At this time Patient had ultrasound of her gallbladder. Shows mild hepatomegaly. No cholelithiasis. After fluids and initial dose pain med she is resting comfortably in bed. She denies alcohol use. I discussed Patient will be remaining nothing by mouth, and IV hydration. Discussed the case with Dr. Tafoya and discussed the case with Dr. Matthews whom discussed with Dr. Stephens. - Lab Data Result diagrams: 06/18/19 09:57 06/18/19 09:57 Lab Results 06/18/19 06/18/19 06/18/19 Range/Units 09:57 09:57 09:57 WBC 8.2 (3.8-10.6) k/uL RBC 4.27 (3.80-5.40) m/uL Hgb 12.5 (11.4-16.0) gm/dL Hct 36.0 (34.0-46.0) % MCV 84.5 (80.0-100.0) fL MCH 29.3 (25.0-35.0) pg MCHC 34.7 (31.0-37.0) g/dL RDW 12.7 (11.5-15.5) % Plt Count 204 (150-450) k/uL Neutrophils % 81 % Lymphocytes % 9 % Monocytes % 6 % Eosinophils % 2 % Basophils % 0 % Neutrophils # 6.6 (1.3-7.7) k/uL Lymphocytes # 0.8 L (1.0-4.8) k/uL Monocytes # 0.5 (0-1.0) k/uL Eosinophils # 0.2 (0-0.7) k/uL Basophils # 0.0 (0-0.2) k/uL PT (9.0-12.0) sec INR (<1.2) APTT (22.0-30.0) sec Sodium 142 (137-145) mmol/L Potassium 3.6 (3.5-5.1) mmol/L Chloride 108 H (98-107) mmol/L Carbon Dioxide 24 (22-30) mmol/L Anion Gap 10 mmol/L BUN 6 L (7-17) mg/dL Creatinine 0.56 (0.52-1.04) mg/dL Est GFR (CKD-EPI)AfAm >90 (>60 ml/min/1.73 sqM) Est GFR (CKD-EPI)NonAf >90 (>60 ml/min/1.73 sqM) Glucose 85 (74-99) mg/dL Calcium 9.3 (8.4-10.2) mg/dL Total Bilirubin 0.5 (0.2-1.3) mg/dL AST 26 (14-36) U/L ALT 17 (4-34) U/L Alkaline Phosphatase 74 (38-126) U/L Total Protein 7.2 (6.3-8.2) g/dL Albumin 4.1 (3.5-5.0) g/dL Amylase 206 H (30-110) U/L Lipase 2596 H (23-300) U/L Urine Color Urine Appearance (Clear) Urine pH (5.0-8.0) Ur Specific [place] (1.001-1.035) Urine Protein (Negative) Urine Glucose (UA) (Negative) Urine Ketones (Negative) Urine Blood (Negative) Urine Nitrite (Negative) Urine Bilirubin (Negative) Urine Urobilinogen (<2.0) mg/dL Ur Leukocyte Esterase (Negative) Urine RBC (0-5) /hpf Urine WBC (0-5) /hpf Ur Squamous Epith Cells (0-4) /hpf Urine Bacteria (None) /hpf Urine Mucus (None) /hpf Urine HCG, Qual Not Detected (Not Detectd) 06/18/19 06/18/19 Range/Units 09:57 09:57 WBC (3.8-10.6) k/uL RBC (3.80-5.40) m/uL Hgb (11.4-16.0) gm/dL Hct (34.0-46.0) % MCV (80.0-100.0) fL MCH (25.0-35.0) pg MCHC (31.0-37.0) g/dL RDW (11.5-15.5) % Plt Count (150-450) k/uL Neutrophils % % Lymphocytes % % Monocytes % % Eosinophils % % Basophils % % Neutrophils # (1.3-7.7) k/uL Lymphocytes # (1.0-4.8) k/uL Monocytes # (0-1.0) k/uL Eosinophils # (0-0.7) k/uL Basophils # (0-0.2) k/uL PT 10.1 (9.0-12.0) sec INR 0.9 (<1.2) APTT 26.8 (22.0-30.0) sec Sodium (137-145) mmol/L Potassium (3.5-5.1) mmol/L Chloride (98-107) mmol/L Carbon Dioxide (22-30) mmol/L Anion Gap mmol/L BUN (7-17) mg/dL Creatinine (0.52-1.04) mg/dL Est GFR (CKD-EPI)AfAm (>60 ml/min/1.73 sqM) Est GFR (CKD-EPI)NonAf (>60 ml/min/1.73 sqM) Glucose (74-99) mg/dL Calcium (8.4-10.2) mg/dL Total Bilirubin (0.2-1.3) mg/dL AST (14-36) U/L ALT (4-34) U/L Alkaline Phosphatase (38-126) U/L Total Protein (6.3-8.2) g/dL Albumin (3.5-5.0) g/dL Amylase (30-110) U/L Lipase (23-300) U/L Urine Color Yellow Urine Appearance Cloudy H (Clear) Urine pH 5.5 (5.0-8.0) Ur Specific [place] 1.016 (1.001-1.035) Urine Protein Negative (Negative) Urine Glucose (UA) Negative (Negative) Urine Ketones Negative (Negative) Urine Blood Small H (Negative) Urine Nitrite Negative (Negative) Urine Bilirubin Negative (Negative) Urine Urobilinogen <2.0 (<2.0) mg/dL Ur Leukocyte Esterase Large H (Negative) Urine RBC 7 H (0-5) /hpf Urine WBC 47 H (0-5) /hpf Ur Squamous Epith Cells 8 H (0-4) /hpf Urine Bacteria Rare H (None) /hpf Urine Mucus Rare H (None) /hpf Urine HCG, Qual (Not Detectd) 06/18/19 11:03 EKG shows normal sinus rhythm, possible left atrial light. Reaccessed, borderline EKG. Ventricular rate of 71 bpm. Intervals 142 ms. Frustration 94 most seconds. QT QTc is 422/[address] elevation. - Radiology Data Radiology results: report reviewed Ultrasound shows hepatomegaly. No biliary ductal dilation. No cholelithiasis. Mild right-sided pelvic complex cyst and hydronephrosis. Consider short-term follow-up. KUB shows nonspecific single borderline dilated bowel loop in the left midabdomen could be transient or regional ileus or enteritis. Moderate stool burn. No free air or obstruction. CT showed distended small bowel and retained fecal consistent with constipation. Minimal fat stranding. Colonic that the terminal ileum consistent with nonspecific inflammatory process. No intestinal wall thickening. Normal append ix. Ultrasound pelvis Small amount of free fluid within the cul-de-sac could be physiologic. No adnexal mass. Disposition Clinical Impression: Acute pancreatitis Disposition: ADMITTED IP TO THIS HOSP Condition: Stable Is patient prescribed a controlled substance at d/c from ED?: No Referrals: Power Jaramillo DO [Primary Care Provider] - 1-2 days Time of Disposition: 12:07
[2019-06-18 10:16] LABS: Basophils % (A) 0 %; Eosinophils # (A) 0.2 k/uL (0-0.7); Eosinophils % (A) 2 %; HGB 12.5 gm/dL (11.4-16.0); Lymphocytes # (A) 0.8 k/uL (1.0-4.8); Lymphocytes % (A) 9 %; MCH 29.3 pg (25.0-35.0); MCHC 34.7 g/dL (31.0-37.0); MCV 84.5 fL (80.0-100.0); Mean Platelet Volume 8.7; Monocytes # (A) 0.5 k/uL (0-1.0); Monocytes % (A) 6 %; Neutrophils # (A) 6.6 k/uL (1.3-7.7); Neutrophils % (A) 81 %; Platelet Count 204 k/uL (150-450); RBC 4.27 m/uL (3.80-5.40); RDW 12.7 % (11.5-15.5); WBC 8.2 k/uL (3.8-10.6)
[2019-06-18 10:24] LABS: Appearance,Urine Cloudy (Clear); Bacteria,Urine Rare /hpf; Bilirubin,Urine Negative (Negative); Blood,Urine Small (Negative); Color,Urine Yellow; Glucose,Urine (UA) Negative (Negative); Ketones,Urine Negative (Negative); Leukocyte Esterase,Urine Large (Negative); Mucus,Urine Rare /hpf; Nitrite,Urine Negative (Negative); PH, Urine 5.5 (5.0-8.0); Protein,Urine Negative (Negative); RBC,Urine 7 /hpf (0-5); Specific Gravity,Urine 1.016 (1.001-1.035); Squamous Epithelial Cell,Urine 8 /hpf (0-4); Urobilinogen,Urine <2.0 mg/dL (<2.0); WBC,Urine 47 /hpf (0-5)
--- NOTE | 2019-06-18 10:25 | XR ---
EXAMINATION TYPE: XR KUB DATE OF EXAM: 06/18/2019 CLINICAL DATA: 23-year-old female with abdominal pain, [facility] COMPARISON: CT 06/17/2019 FINDINGS: Lung bases are clear. No evidence for free intraperitoneal air. Moderate stool burden. Nonspecific borderline dilated small bowel loop in the left abdomen measuring 3.1 cm in caliber. No a dditional dilated small bowel loops. No differential air-fluid levels. No suspicious calcifications identified. IMPRESSION: 1. A nonspecific single borderline dilated small bowel loop left midabdomen could be transient or cou ld represent a regional ileus or enteritis. 2. Moderate stool burden. No evidence for free air or bowel obstruction
[2019-06-18 10:26] LABS: ALT 17 U/L (4-34); AST 26 U/L (14-36); African American GFR (CKD) >90 (>60 ml/min/1.73 sqM); Albumin 4.1 g/dL (3.5-5.0); Alkaline Phosphatase 74 U/L (38-126); Amylase 206 U/L (30-110); Anion Gap 10 mmol/L; Blood Urea Nitrogen 6 mg/dL (7-17); Calcium 9.3 mg/dL (8.4-10.2); Carbon Dioxide 24 mmol/L (22-30); Chloride 108 mmol/L (98-107); Glucose 85 mg/dL (74-99); Non-African American GFR(CKD) >90 (>60 ml/min/1.73 sqM); Potassium 3.6 mmol/L (3.5-5.1); Sodium 142 mmol/L (137-145); Total Bilirubin 0.5 mg/dL (0.2-1.3); Total Protein 7.2 g/dL (6.3-8.2)
[2019-06-18 10:27] LABS: INR 0.9 (<1.2); Partial Thromboplastin Time 26.8 sec (22.0-30.0); Prothrombin Time 10.1 sec (9.0-12.0)
[2019-06-18] MEDS ORDERED: SODIUM CHLORIDE 0.9% 1,000 ML IV ONE (11:03)
--- NOTE | 2019-06-18 11:40 | US ---
EXAMINATION TYPE: US gallbladder DATE OF EXAM: 06/18/2019 COMPARISON: Correlation CT 06/17/2019 CLINICAL HISTORY: 23-year-old female pancreatitis. NPO. TECHNIQUE: Multiple sonographic images of the right upper quadrant are obtained. FINDINGS: EXAM MEASUREMENTS: Liver Length: 20.8 cm Gallbladder Wall: 0.2 cm CBD: 0.3 cm Right Kidney: 12.0 x 4.6 x 4.9 cm Pancreas: Visualized portions show no gross abnormality by ultrasound. Liver: Enlarged at 20.8 cm. Overall homogeneous appearance without focal lesion. Gallbladder: wnl Evidence for sonographic Crouch's sign: neg CBD: wnl Right Kidney: Mild pelvicaliectasis. IMPRESSION: 1. Hepatomegaly (20.8 cm). 2. No biliary ductal dilatation. No cholelithiasis. 3. Mild right-sided pelvicaliectasis/hydronephrosis. Consider short interval follow-up.
[2019-06-18] MEDS: SODIUM CHLORIDE 0.9% 1,000 ML IV SCH ×2 (12:07→23:27)
[2019-06-18] MEDS ORDERED: NALOXONE 0.4 MG/ML 1 ML VIAL IV PRN (12:09)
[2019-06-18] MEDS ORDERED: IBUPROFEN 400 MG TAB PO PRN (12:09)
[2019-06-18] MEDS ORDERED: ACETAMINOPHEN TAB 325 MG TAB PO PRN (12:09)
--- NOTE | 2019-06-18 14:54 | P.HPIM ---
History of Present Illness this is a pleasant 23 years old female with no significant past medical history .patient recently gave to about one month old baby boy. She still have mild Brown discharge per vagina as per patient. Patient came to emergency room yesterday complaining of from right lower quadrant abdominal pain as per documentation, she had a CT of the abdomen and pelvis showing distended small bowel with retained fecal material considered his constipation, no intestinal wall thickening and normal appendix and patient was discharged home however she came to the hospital today complaining of from abdominal pain.patient states that she has 4 days of right lower quadrant abdominal pain about 8-10/10 in severity. Like sharp radiating to the epigastric area and to the back. No associated nausea vomiting or diarrhea or constipation. Patient denies all except occasionally, no smoking or illicit tracts Vitas looks stable. Labs looked unremarkable CBC, BMP and INR, liver enzymes. Lipase was elevated at 2596 and amylase elevated at 206. Urinalysis is suspicious for infection. EKG showing normal sinus rhythm at 71.gallbladder u ltrasound is negativefor gallstone however patient has hepatomegaly with mild pelvicaliectasis Review of Systems CONSTITUTIONAL: No fever, no malaise, no fatigue. HEENT: No recent visual problems or hearing problems. Denied any sore throat. CARDIOVASCULAR: No orthopnea, PND, no palpitations, no syncope. PULMONARY: No shortness of breath, no cough, no hemoptysis. GASTROINTESTINAL: No diarrhea, no nausea, no vomiting, Normoactive bowel sounds. NEUROLOGICAL: No headaches, no weakness, no numbness. HEMATOLOGICAL: Denies any bleeding or petechiae. GENITOURINARY: Denies any burning micturition, frequency, or urgency. MUSCULOSKELETAL/RHEUMATOLOGICAL: Denies any joint pain, swelling, or any muscle pain. ENDOCRINE: Denies any polyuria or polydipsia. Past Medical History Additional Past Medical History / Comment(s): migraines History of Any Multi-Drug Resistant Organisms: None Reported Past Surgical History: No Surgical Hx Reported Additional Past Surgical History / Comment(s): [place] tooth extraction Past Anesthesia/Blood Transfusion Reactions: No Reported Reaction Past Psychological History: No Psychological Hx Reported Smoking Status: Never smoker Past Alcohol Use History: Occasional Past Drug Use History: None Reported - Past Family History Mother Family Medical History: Cancer Additional Family Medical History / Comment(s): Breast Cancer Father Additional Family Medical History / Comment(s): migraines. Medications and Allergies Home Medications Medication Instructions Recorded Confirmed Type Pnv No.95/Ferrous Fum/Folic AC 1 tab PO HS 05/04/19 06/18/19 History [ Multivitamin Tablet] Ibuprofen [Motrin] 600 mg PO Q6HR PRN #40 tab 05/16/19 06/18/19 Rx Acetaminophen-Codeine 300-30mg 1 tab PO Q6H PRN 06/18/19 06/18/19 History [Tylenol w/codeine #3] Allergies Allergy/AdvReac Type Severity Reaction Status Date / Time No Known Allergies Allergy Verified 06/18/19 13:56 Physical Exam Vitals: Vital Signs Temp Pulse Resp BP Pulse Ox 06/18/19 08:51 98.4 F 73 18 112/69 98 Intake and Output 06/17/19 06/18/19 06/18/19 22:59 06:59 14:59 Other: Weight 68.039 kg GENERAL: The patient is alert and oriented x3, not in any acute distress. Well developed, well nourished. HEENT: Pupils are round and equally reacting to light. EOMI. No scleral icterus. No conjunctival pallor. Normocephalic, atraumatic. No pharyngeal erythema. No thyromegaly. CARDIOVASCULAR: S1 and S2 present. No murmurs, rubs, or gallops. PULMONARY: Chest is clear to auscultation, no wheezing or crackles. -ABDOMEN: Soft, right lower quadrant tenderness with no rebound tenderness or guarding, nondistended, normoactive bowel sounds. No palpable organomegaly. MUSCULOSKELETAL: No joint swelling or deformity. EXTREMITIES: No cyanosis, clubbing, or pedal edema. NEUROLOGICAL: Gross neurological examination did not reveal any focal deficits. SKIN: No rashes. No petechiae Results CBC & Chem 7: 06/18/19 09:57 06/18/19 09:57 Labs: Abnormal Lab Results - Last 24 Hours (Table) 06/18/19 06/18/19 06/18/19 Range/Units 09:57 09:57 09:57 Lymphocytes # 0.8 L (1.0-4.8) k/uL Chloride 108 H (98-107) mmol/L BUN 6 L (7-17) mg/dL Amylase 206 H (30-110) U/L Lipase 2596 H (23-300) U/L Urine Appearance Cloudy H (Clear) Urine Blood Small H (Negative) Ur Leukocyte Esterase Large H (Negative) Urine RBC 7 H (0-5) /hpf Urine WBC 47 H (0-5) /hpf Ur Squamous Epith Cells 8 H (0-4) /hpf Urine Bacteria Rare H (None) /hpf Urine Mucus Rare H (None) /hpf Assessment and Plan Assessment: acute pancreatitis Hepatomegaly Mild right-sided pelvicaliectasis/hydronephrosis abnormal urinalysis suspicious for asymptomatic bacteriuria. Follow-up urine culture recent delivery about one month ago Plan: This is a pleasant 23 years old female who presents with acute pancreatitis and hepatomegaly. Consult GI. Continue with IV fluids, keep nothing by mouth. Pain management. continue with antibiotics and follow-up urine culture.patient was advised to hold breast-feeding and she agrees. Problems were discussed with the patient and her mother at bedside in details and they verbalized understanding and acceptance Labs and medication were reviewed.. Continue same treatment. Continue with symptomatic treatment. Resume home medication. Monitor lytes and vitals. DVT and GI prophylaxis. Further recommendations of the clinical course of the patient DVT prophylaxis: Subcutaneous heparin GI Prophylaxis:Protonix Prognosis is guarded
[2019-06-18 15:13] VITALS: BMI 20.9
[2019-06-18] MEDS: KETOROLAC 30 MG/ML 1 ML VIAL IVP PRN (18:04)
[2019-06-18] MEDS: HYDROmorphone 1 MG/ML 1 ML SYRINGE IVP PRN ×2 (19:32→23:27)
[2019-06-18] MEDS: HEPARIN SODIUM,PORCINE 5,000 UNIT/ML 1 ML VIAL SQ SCH (20:22)
[2019-06-19] MEDS: KETOROLAC 30 MG/ML 1 ML VIAL IVP PRN ×4 (00:26→22:10)
[2019-06-19] MEDS: SODIUM CHLORIDE 0.9% 1,000 ML IV SCH ×3 (04:57→16:30)
[2019-06-19] MEDS: HYDROmorphone 1 MG/ML 1 ML SYRINGE IVP PRN (07:22)
--- NOTE | 2019-06-19 08:16 | P.PN ---
Subjective this is a pleasant 23 years old female with no significant past medical history .patient recently gave to about one month old baby boy. She still have mild Brown discharge per vagina as per patient. Patient came to emergency room yesterday complaining of from right lower quadrant abdominal pain as per documentation, she had a CT of the abdomen and pelvis showing distended small bowel with retained fecal material considered his constipation, no intestinal wall thickening and normal appendix and patient was discharged home however she came to the hospital today complaining of from abdominal pain.patient states that she has 4 days of right lower quadrant abdominal pain about 8-10/10 in severity. Like sharp radiating to the epigastric area and to the back. No associated nausea vomiting or diarrhea or constipation. Patient denies all except occasionally, no smoking or illicit tracts Vitas looks stable. Labs looked unremarkable CBC, BMP and INR, liver enzymes. Lipase was elevated at 2596 and amylase elevated at 206. Urinalysis is suspicious for infection. EKG showing normal sinus rhythm at 71.gallbladder ultrasound is negativefor gallstone however patient has hepatomegaly with mild pelvicaliectasis 06/19/2019 patient abdominal pain is improving and is down to 2-3/10 in severity and she is needing Lasix doses of Dilaudid only 0.5 mg morning. We'll go to switch her to oral opioids [place]. She is tolerating liquid diet and can be advanced. She has normal bowel movement but she is passing gases. No nausea vomiting.labs from this morning are pending. Gastroenterology and urology services were consulted. Objective - Vital Signs Vital signs: Vital Signs Temp 99.0 F 06/19/19 00:25 Pulse 70 06/19/19 00:25 Resp 18 06/19/19 00:25 BP 131/73 06/19/19 00:25 Pulse Ox 97 06/19/19 00:25 Intake & Output 06/18/19 06/19/19 06/19/19 18:59 06:59 18:59 Intake Total 3000 Output Total 900 Balance 2100 Weight 68.039 kg Intake: Amount of Fluid Infused ( 3000 ml) Output: Urine 900 Other: Voiding Method Toilet Toilet - Exam GENERAL: The patient is alert and oriented x3, not in any acute distress. Well developed, well nourished. HEENT: Pupils are round and equally reacting to light. EOMI. No scleral icterus. No conjunctival pallor. Normocephalic, atraumatic. No pharyngeal erythema. No thyromegaly. CARDIOVASCULAR: S1 and S2 present. No murmurs, rubs, or gallops. PULMONARY: Chest is clear to auscultation, no wheezing or crackles. -ABDOMEN: Soft,improving right lower quadrant tenderness with no rebound tenderness or guarding, nondistended, normoactive bowel sounds. No palpable organomegaly. MUSCULOSKELETAL: No joint swelling or deformity. EXTREMITIES: No cyanosis, clubbing, or pedal edema. NEUROLOGICAL: Gross neurological examination did not reveal any focal deficits. SKIN: No rashes. No petechiae - Labs CBC & Chem 7: 06/18/19 09:57 06/18/19 09:57 Labs: Abnormal Lab Results - Last 24 Hours (Table) 06/18/19 06/18/19 06/18/19 Range/Units 09:57 09:57 09:57 Lymphocytes # 0.8 L (1.0-4.8) k/uL Chloride 108 H (98-107) mmol/L BUN 6 L (7-17) mg/dL Amylase 206 H (30-110) U/L Lipase 2596 H (23-300) U/L Urine Appearance Cloudy H (Clear) Urine Blood Small H (Negative) Ur Leukocyte Esterase Large H (Negative) Urine RBC 7 H (0-5) /hpf Urine WBC 47 H (0-5) /hpf Ur Squamous Epith Cells 8 H (0-4) /hpf Urine Bacteria Rare H (None) /hpf Urine Mucus Rare H (None) /hpf Microbiology - Last 24 Hours (Table) 06/18/19 09:57 Urine Culture - Preliminary Urine,Clean Catch Assessment and Plan Assessment: acute pancreatitis Hepatomegaly Mild right-sided pelvicaliectasis/hydronephrosis abnormal urinalysis suspicious for asymptomatic bacteriuria. Follow-up urine culture recent delivery about one month ago Plan: This is a pleasant 23 years old female who presents with acute pancreatitis and hepatomegaly. Consult GI. Continue with IV fluids, keep nothing by mouth. Pain management. continue with antibiotics and follow-up urine culture.patient w as advised to hold breast-feeding and she agrees. Problems were discussed with the patient and her mother at bedside in details and they verbalized understanding and acceptance Labs and medication were reviewed.. Continue same treatment. Continue with symptomatic treatment. Resume home medication. Monitor lytes and vitals. DVT and GI prophylaxis. Further recommendations of the clinical course of the patient DVT prophylaxis: Subcutaneous heparin GI Prophylaxis:Protonix Prognosis is guarded
[2019-06-19] MEDS: HEPARIN SODIUM,PORCINE 5,000 UNIT/ML 1 ML VIAL SQ SCH ×2 (09:20→22:09)
[2019-06-19] MEDS: PANTOPRAZOLE 40 MG/10 ML VIAL IV SCH (09:20)
[2019-06-19 11:33] LABS: Basophils % (A) 0 %; Eosinophils # (A) 0.1 k/uL (0-0.7); Eosinophils % (A) 3 %; HCT 35.2 % (34.0-46.0); HGB 11.3 gm/dL (11.4-16.0); Lymphocytes # (A) 0.6 k/uL (1.0-4.8); Lymphocytes % (A) 17 %; MCH 27.6 pg (25.0-35.0); MCHC 32.1 g/dL (31.0-37.0); MCV 86.2 fL (80.0-100.0); Mean Platelet Volume 9.2; Monocytes # (A) 0.3 k/uL (0-1.0); Monocytes % (A) 8 %; Neutrophils # (A) 2.7 k/uL (1.3-7.7); Neutrophils % (A) 70 %; Platelet Count 174 k/uL (150-450); RBC 4.08 m/uL (3.80-5.40); RDW 12.9 % (11.5-15.5); WBC 3.8 k/uL (3.8-10.6)
[2019-06-19 11:34] LABS: ALT 27 U/L (4-34); AST 36 U/L (14-36); African American GFR (CKD) >90 (>60 ml/min/1.73 sqM); Albumin 3.3 g/dL (3.5-5.0); Alkaline Phosphatase 84 U/L (38-126); Amylase 57 U/L (30-110); Anion Gap 8 mmol/L; Blood Urea Nitrogen 2 mg/dL (7-17); Calcium 8.5 mg/dL (8.4-10.2); Carbon Dioxide 22 mmol/L (22-30); Chloride 110 mmol/L (98-107); Cholesterol 156 mg/dL (<200); Glucose 79 mg/dL (74-99); HDL Cholesterol 40 mg/dL (40-60); LDL Cholesterol,Calculated 87 mg/dL (0-99); Non-African American GFR(CKD) >90 (>60 ml/min/1.73 sqM); Potassium 3.6 mmol/L (3.5-5.1); Sodium 140 mmol/L (137-145); Total Bilirubin 0.6 mg/dL (0.2-1.3); Total Protein 6.1 g/dL (6.3-8.2); Triglycerides 144 mg/dL (<150)
[2019-06-19] MEDS: HYDROcodone/APAP 5-325MG 1 EACH TAB PO PRN ×2 (11:58→18:18)
--- NOTE | 2019-06-19 12:43 | CONS ---
CONSULTATION DATE OF SERVICE: 06/19/2019 REASON FOR CONSULTATION: Acute pancreatitis. HISTORY OF PRESENT ILLNESS: The patient is a 23-year-old pleasant white female admitted to the hospital with acute onset of severe epigastric pain that started 3 to 4 days prior to hospitalization. She came into the emergency room yesterday and was noted to have elevated amylase and lipase consistent with acute pancreatitis. The patient was having some nausea but no emesis. No rectal bleeding. No change in bowel habits. At the time of admission to the hospital, lipase was elevated at 2596 and amylase was elevated at 206. ALT and AST are within normal limits. T-bili and alkaline phosphatase are normal. Ultrasound of the gallbladder was negative for gallstones. Patient never had these symptoms in the past. No history of alcohol use. No family history of pancreatitis. This morning she is feeling much better. PAST MEDICAL HISTORY: Significant for migraine. PAST SURGICAL HISTORY: None. MEDICATIONS AT HOME: Multivitamin, Motrin, Tylenol with codeine. ALLERGIES: None. SOCIAL HISTORY: No smoking. No alcohol use. FAMILY HISTORY: Mother had breast cancer. Father migraines. REVIEW OF SYSTEMS: CARDIOPULMONARY: No chest pain or shortness of breath. GENITOURINARY: No dysuria or hematuria. MUSCULOSKELETAL: Unremarkable. SKIN: Unremarkable. : Unremarkable. PSYCHIATRY: Unremarkable. NEUROLOGY: Unremarkable. ENT/VISION: Unremarkable. CONSTITUTIONAL: No recent weight loss. No fever, chills, night sweats. PHYSICAL EXAMINATION: On physical examination, she appears comfortable. No apparent distress. Vital signs are stable. Blood pressure is 132/86, pulse rate 82 per minute and afebrile. HEENT examination unremarkable. Conjunctivae pink. Sclerae anicteric. Oral cavity no lesions. NECK: No JVD or lymph node enlargement. CHEST: Clear to auscultation. HEART: Regular rate and rhythm. ABDOMEN: Soft. There was mild tenderness in the epigastric area. Bowel sounds are positive. No organomegaly. EXTREMITIES: No pedal edema. SKIN: No rashes. NEURO: Alert and oriented x3. No focal deficits. LABS: Labs from yesterday WBC 8.2, hemoglobin 12.5, platelets normal. Basic metabolic panel is within normal limits. ALT and AST, T-bilirubin and alkaline phosphatase are normal. Amylase was 206, lipase is 2596. Ultrasound of the gallbladder did not show any evidence of gallstones. IMPRESSION: This is a lady who presents to the hospital with acute onset of severe epigastric pain associated with nausea, vomiting for the last 3 days duration. Noted to have elevated amylase and lipase consistent with acute pancreatitis. Serum transaminases are within normal limits, which makes it very unlikely that we are dealing with biliary pancreatitis. Ultrasound of the gallbladder did not show any evidence of gallstones. No history of alcohol use. Other causes of pancreatitis needs to be considered. Her symptoms are gradually improving. RECOMMENDATIONS: 1. Continue with a clear liquid diet. 2. Await labs from this morning. 3. Will request for fasting serum triglycerides and IgG4 levels to rule out autoimmune pancreatitis. 4. If her labs are improving, the diet can be advanced as tolerated. She will be discharged home in 1 to 2 days with an outpatient followup in 2 weeks. Thank you for this consultation. ANTONIO / TALON: [id number] /
--- NOTE | 2019-06-19 13:56 | P.GSCN ---
History of Present Illness Consult date: 06/19/19 Reason for Consult: right hydronephrosis History of present illness: Ms Antunez is a 23 yo female admitted for abdominal pain and pancreatitis. urology is consulted for mild right-sided hydronephrosis on ultrasound. of note she had a CT of the abdomen and pelvis 06/17 showing distended small bowel with retained fecal material. no stones were visualized and there was no evidence of hydronephrosis on CT. denies any urinary symptoms at baseline. She has seen Dr. Kamara in the past for kidney stones she indicated she's passed spontaneously. on evaluation today she does complain of right lower quadrant abdominal pain that radiates to the back. No evidence of suprapubic abdominal pain or flank pain Review of Systems - Constitutional Denies chills, Denies fever - EENT Ears, nose, mouth and throat: Denies dysphagia, Denies headache - Cardiovascular Denies chest pain, Denies leg edema - Respiratory Denies cough, Denies dyspnea - Gastrointestinal Reports abdominal pain, Denies nausea, Denies vomiting - Genitourinary Genitourinary: Denies dysuria, Denies flank pain, Denies hematuria - Neurological Denies confusion, Denies convulsions Past Medical History Additional Past Medical History / Comment(s): migraines History of Any Multi-Drug Resistant Organisms: None Reported Past Surgical History: No Surgical Hx Reported Additional Past Surgical History / Comment(s): [place] tooth extraction Past Anesthesia/Blood Transfusion Reactions: No Reported Reaction Past Psychological History: No Psychological Hx Reported Smoking Status: Never smoker Past Alcohol Use History: Occasional Past Drug Use History: None Reported - Past Family History Mother Family Medical History: Cancer Additional Family Medical History / Comment(s): Breast Cancer Father Additional Family Medical History / Comment(s): migraines. Medications and Allergies Home Medications Medication Instructions Recorded Confirmed Type Pnv No.95/Ferrous Fum/Folic AC 1 tab PO HS 05/04/19 06/18/19 History [ Multivitamin Tablet] Ibuprofen [Motrin] 600 mg PO Q6HR PRN #40 tab 05/16/19 06/18/19 Rx Acetaminophen-Codeine 300-30mg 1 tab PO Q6H PRN 06/18/19 06/18/19 History [Tylenol w/codeine #3] Allergies Allergy/AdvReac Type Severity Reaction Status Date / Time No Known Allergies Allergy Verified 06/18/19 13:56 Surgical - Exam Vital Signs Temp Pulse Resp BP Pulse Ox 98.4 F 73 18 112/69 98 06/18/19 08:51 06/18/19 08:51 06/18/19 08:51 06/18/19 08:51 06/18/19 08:51 - General well developed, well nourished, no distress - Respiratory normal expansion, normal respiratory effort - Abdomen Abdomen: soft, tender (RLQ), no distended - Psychiatric oriented to time, oriented to person, oriented to place, speech is normal Results - Labs 06/19/19 08:00 06/19/19 08:00 Abnormal Lab Results - Last 24 Hours (Table) 06/19/19 06/19/19 Range/Units 08:00 08:00 Hgb 11.3 L (11.4-16.0) gm/dL Lymphocytes # 0.6 L (1.0-4.8) k/uL Chloride 110 H (98-107) mmol/L BUN 2 L (7-17) mg/dL Creatinine 0.48 L (0.52-1.04) mg/dL Total Protein 6.1 L (6.3-8.2) g/dL Albumin 3.3 L (3.5-5.0) g/dL Microbiology - Last 24 Hours (Table) 06/18/19 09:57 Urine Culture - Preliminary Urine,Clean Catch Diabetes panel 06/19/19 Range/Units 08:00 Sodium 140 (137-145) mmol/L Potassium 3.6 (3.5-5.1) mmol/L Chloride 110 H (98-107) mmol/L Carbon Dioxide 22 (22-30) mmol/L BUN 2 L (7-17) mg/dL Creatinine 0.48 L (0.52-1.04) mg/dL Glucose 79 (74-99) mg/dL Calcium 8.5 (8.4-10.2) mg/dL AST 36 (14-36) U/L ALT 27 (4-34) U/L Alkaline Phosphatase 84 (38-126) U/L Total Protein 6.1 L (6.3-8.2) g/dL Albumin 3.3 L (3.5-5.0) g/dL Triglycerides 144 (<150) mg/dL HDL Cholesterol 40 (40-60) mg/dL Calcium panel 06/19/19 Range/Units 08:00 Calcium 8.5 (8.4-10.2) mg/dL Albumin 3.3 L (3.5-5.0) g/dL Pituitary panel 06/19/19 Range/Units 08:00 Sodium 140 (137-145) mmol/L Potassium 3.6 (3.5-5.1) mmol/L Chloride 110 H (98-107) mmol/L Carbon Dioxide 22 (22-30) mmol/L BUN 2 L (7-17) mg/dL Creatinine 0.48 L (0.52-1.04) mg/dL Glucose 79 (74-99) mg/dL Calcium 8.5 (8.4-10.2) mg/dL Adrenal panel 06/19/19 Range/Units 08:00 Sodium 140 (137-145) mmol/L Potassium 3.6 (3.5-5.1) mmol/L Chloride 110 H (98-107) mmol/L Carbon Dioxide 22 (22-30) mmol/L BUN 2 L (7-17) mg/dL Creatinine 0.48 L (0.52-1.04) mg/dL Glucose 79 (74-99) mg/dL Calcium 8.5 (8.4-10.2) mg/dL Total Bilirubin 0.6 (0.2-1.3) mg/dL AST 36 (14-36) U/L ALT 27 (4-34) U/L Alkaline Phosphatase 84 (38-126) U/L Total Protein 6.1 L (6.3-8.2) g/dL Albumin 3.3 L (3.5-5.0) g/dL Assessment and Plan Assessment: 23-year-old female admitted to the hospital abdominal pain and pancreatitis. Urology is consultative for mild right-sided hydronephrosis that was seen on ultrasound. She underwent a CT on June 17 that showed no evidence of hydronephrosis or any renal calculi. On evaluation today there was no flank pain that is appreciated her pain is more prominent along the right lower quadrant Plan: -her pain is unlikely from the mild hydronephrosis, additionally a CT showed no evidence of hydro 2 days ago -F/U on urine culture -Can follow-up as an outpatient with Dr. Robertson in 4 weeks
[2019-06-20] MEDS: HYDROcodone/APAP 5-325MG 1 EACH TAB PO PRN ×3 (00:20→12:54)
[2019-06-20 01:00] VITALS: RESP 16
[2019-06-20] MEDS: KETOROLAC 30 MG/ML 1 ML VIAL IVP PRN ×2 (04:08→10:12)
[2019-06-20] MEDS: SODIUM CHLORIDE 0.9% 1,000 ML IV SCH (04:09)
[2019-06-20 07:55] LABS: Cholesterol 144 mg/dL (<200); HDL Cholesterol 36 mg/dL (40-60); LDL Cholesterol,Calculated 81 mg/dL (0-99); Triglycerides 137 mg/dL (<150)
[2019-06-20 08:16] VITALS: BP 108/65; PULSE 70; TEMP 98.6
[2019-06-20] MEDS: PANTOPRAZOLE 40 MG/10 ML VIAL IV SCH (08:24)
[2019-06-20] MEDS: HEPARIN SODIUM,PORCINE 5,000 UNIT/ML 1 ML VIAL SQ SCH (08:24)
--- NOTE | 2019-06-20 14:06 | PN ---
PROGRESS NOTE DATE OF DICTATION: June 20, 2019 Patient is a 23-year-old pleasant white female admitted to hospital with acute pancreatitis 2 days ago. She is feeling much better today. Still has some mild epigastric pain, but overall feeling much better. Nausea and vomiting has resolved, on a low-fat diet, tolerating well. PHYSICAL EXAMINATION: Appears comfortable. No apparent distress. VITAL SIGNS: Stable. Blood pressure 108/65, pulse is 70, temperature 98.6. HEENT examination unremarkable. Conjunctivae pink. Sclerae anicteric. Oral cavity no lesions. NECK: No JVD or lymph node enlargement. CHEST: Clear to auscultation. HEART: Regular rate and rhythm. ABDOMEN: Soft. Bowel sounds are positive. No organomegaly. EXTREMITIES: No pedal edema. SKIN no rashes. NEUROLOGIC: Alert and oriented x3. No focal deficits. LABS: WBC 3.8, hemoglobin 11.3, platelets normal. Basic metabolic panel is within normal limits. Amylase and lipase 57 and 77 respectively. Fasting triglycerides 137. Serum IgG4 is still pending. IMPRESSION: Acute pancreatitis, first episode, resolving. Patient doing well. Symptoms have significantly improved. Amylase and lipase have normalized. The etiology of pancreatitis remains unclear. Ultrasound did not show any evidence of gallstones. No history of alcohol use. Serum trough fasting triglycerides are normal. IgG4 levels are still pending. RECOMMENDATIONS: 1. Continue with a low-fat diet. 2. Discharge home today with outpatient followup in 3-4 weeks. Thank you for this consultation. MMODL / IJN: [id number] /
--- NOTE | 2019-06-20 14:41 | P.DS ---
Providers Date of admission: 06/18/19 12:13 Attending physician: Ary Stephens Consults: 06/18/19 12:42 Consult Physician Urgent Consulting Provider: Merrick Perez Consult Reason/Comments: hepatomegaly , and pancreatitis Do you want consulting provider notified?: Yes 06/18/19 22:59 Consult Physician Routine Consulting Provider: Albino Kamara Consult Reason/Comments: mild right hydronephrosis Do you want consulting provider notified?: Yes Primary care physician: Power Jaraimllo Hospital Course: Diagnoses: acute pancreatitis Hepatomegaly Mild right-sided pelvicaliectasis/hydronephrosis abnormal urinalysis suspicious for asymptomatic bacteriuria. Follow-up urine culture recent normal vaginal delivery about one month ago Hospital course: this is a pleasant 23 years old female with no significant past medical history .patient recently gave to about one month old baby boy. Patient came to emergency room complaining of from right lower quadrant abdominal pain as per documentation she was discharged from emergency room and came back next day complaining from same abdominal pain., she had a relatively unremarkable CT of the abdomen and pelvis during first visit showing distended small bowel with retained fecal material considered constipation, no intestinal wall thickening and normal appendix and patient was discharged home however she came to the hospital today complaining of from abdominal pain.patient states that she has 4 days of right lower quadrant abdominal pain about 8-10/10 in severity. Like sharp radiating to the epigastric area and to the back. No associated nausea vomiting or diarrhea or constipation.On admission she had elevated amylase and lipase. Lipase was elevated at 2596 and amylase elevated at 206. Patient was admitted with the presumptive diagnosis of acute pancreatitis of unknown etiology as ultrasound of the gallbladder was negative, patient denies history of extensive alcohol drinks, she drinks alcohol occasionally. Triglycerides not elevated at 137. Patient has been evaluated by GI team and she's been treated with IV fluid, bowel rest and pain management. With diet advanced gradually patient showed interval improvement and she couldn't tolerate the pain with oral pain medication. She tolerated diet well. No nausea vomiting or diarrhea. Also on admission there was suspicious of mild right-sided pelvicaliectasis/hydr onephrosis, urine culture was negative for infection. She did not need antibiotics. Neurologist evaluated the patient and recommended follow-up as an outpatient in 4 weeks, patient informed and she agrees Patient was cleared for discharge by GI team and neurology team Problems and management plan were discussed with the patient and he verbalized understanding and acceptance Patient was found stable and can be discharged home however he needs follow-up as an outpatient. Patient was instructed to follow up with PCP within one week and patient agrees. Also patient was instructed to follow up with her shuttle van driver in 2 weeks and she agrees. Also to follow up with urologist in 4 weeks and she agrees. Upon patient request at discussed this recommendation with the mother including follow-up with GI in 2 weeks and urologist in 4 weeks and PCP in one week and she agrees to call and make appointments. Patient was instructed to avoid breast feeding while in-house and upon discharge until she finished her therapy and follow-up with her doctor and she agrees Gen: patient is a AAOx3, no distress CVS: S1-S2, RRR, no murmur Lungs: B/L CTA, no wheezing -Abdomen: soft, no distention, mild right lower quadrant tenderness, no rebound tenderness or guarding, positive bowel sounds Extremity: no leg edema or induration Time spent more than 35 minutes Patient Condition at Discharge: Stable Plan - Discharge Summary Discharge Rx Participant: No New Discharge Prescriptions: New HYDROcodone/APAP 5-325MG [[place] 5-325] 1 each PO Q12HR PRN 2 Days #4 tab PRN Reason: Pain Discontinued Pnv No.95/Ferrous Fum/Folic AC [ Multivitamin Tablet] 1 tab PO HS Ibuprofen [Motrin] 600 mg PO Q6HR PRN #40 tab PRN Reason: Mild Pain Or Fever >= 100.5 Acetaminophen-Codeine 300-30mg [Tylenol w/codeine #3] 1 tab PO Q6H PRN PRN Reason: Pain Discharge Medication List HYDROcodone/APAP 5-325MG [[place] 5-325] 1 each PO Q12HR PRN 2 Days #4 tab 06/20/19 [Rx] Follow up Appointment(s)/Referral(s): Power Jaramillo DO [Primary Care Provider] - 1-2 days Mary Oconnell MD [STAFF PHYSICIAN] - 2 Weeks Albino Kamara MD [STAFF PHYSICIAN] - 4 Weeks Activity/Diet/Wound Care/Special Instructions: IT IS RECOMMENDED THAT YOU PUMP AND DUMP FOR 2-3 DAYS.
[2019-06-23 12:03] LABS: IgG Subclass 3 54.7 mg/dL (11.0-85.0); IgG Subclass 4 53.6 mg/dL (3.0-175.0)
== END 2019-06-20 15:15 | disposition home or self-care (01) | DRG 776 ==
LOC: EC 08:44 → 6PED 12:13
PROVIDERS: ADMIT Internal Medicine; ATTEND Internal Medicine
DX: O86.89 Other specified puerperal infections (principal); K85.90 Acute pancreatitis without necrosis or infection, unspecified; N13.30 Unspecified hydronephrosis; O99.89 Other specified diseases and conditions complicating pregnancy, childbirth and the puerperium; Z80.3 Family history of malignant neoplasm of breast; K59.00 Constipation, unspecified; Z82.0 Family history of epilepsy and other diseases of the nervous system
CPT/HCPCS: 36415; 74018; 76705; 80053; 80061; 81001; 81025; 82150; 82787; 83690; 85025; 85610; 85730; 87086; 93005; 96361; 96374; 96375; 99285

== ENCOUNTER 2023-02-26 15:10 | Emergency (ER) | payer BC, OTHER ==
[2023-02-26 15:37] VITALS: TEMP 98.9
[2023-02-26] MEDS ORDERED: SODIUM CHLORIDE 0.9% 1,000 ML IV ONE (16:13)
[2023-02-26 16:42] LABS: Basophils % (A) 0 %; Eosinophils # (A) 0.2 k/uL (0-0.7); Eosinophils % (A) 2 %; HCT 35.5 % (34.0-46.0); HGB 12.2 gm/dL (11.4-16.0); Lymphocytes # (A) 1.6 k/uL (1.0-4.8); Lymphocytes % (A) 23 %; MCH 29.1 pg (25.0-35.0); MCHC 34.3 g/dL (31.0-37.0); Mean Platelet Volume 8.9; Monocytes # (A) 0.4 k/uL (0-1.0); Monocytes % (A) 6 %; Neutrophils # (A) 4.7 k/uL (1.3-7.7); Neutrophils % (A) 67 %; Platelet Count 268 k/uL (150-450); RBC 4.18 m/uL (3.80-5.40); RDW 13.5 % (11.5-15.5)
[2023-02-26 16:52] LABS: Amorphous Sediment,Urine Occasional /hpf; Appearance,Urine Clear (Clear); Bilirubin,Urine Negative (Negative); Blood,Urine Large (Negative); Color,Urine Light Yellow; Glucose,Urine (UA) Negative (Negative); Ketones,Urine Negative (Negative); Leukocyte Esterase,Urine Negative (Negative); Nitrite,Urine Negative (Negative); Protein,Urine Negative (Negative); RBC,Urine >182 /hpf (0-5); Specific Gravity,Urine 1.014 (1.001-1.035); Squamous Epithelial Cell,Urine <1 /hpf (0-4); Urobilinogen,Urine <2.0 mg/dL (<2.0); WBC,Urine 2 /hpf (0-5)
[2023-02-26 16:54] LABS: Partial Thromboplastin Time 26.3 sec (22.0-30.0); Prothrombin Time 10.7 sec (9.0-12.0)
[2023-02-26 16:57] LABS: ALT 12 U/L (4-34); AST 21 U/L (14-36); African American GFR (CKD) >90 (>60 ml/min/1.73 sqM); Albumin 4.2 g/dL (3.5-5.0); Alkaline Phosphatase 46 U/L (38-126); Anion Gap 7 mmol/L; Blood Urea Nitrogen 14 mg/dL (7-17); Calcium 9.2 mg/dL (8.4-10.2); Carbon Dioxide 24 mmol/L (22-30); Chloride 106 mmol/L (98-107); Glucose 93 mg/dL (74-99); Non-African American GFR(CKD) >90 (>60 ml/min/1.73 sqM); Potassium 4.3 mmol/L (3.5-5.1); Sodium 137 mmol/L (137-145); Total Bilirubin 0.4 mg/dL (0.2-1.3); Total Protein 7.6 g/dL (6.3-8.2)
[2023-02-26 17:13] LABS: HCG,Quantitative Serum <2.4 mIU/mL
--- NOTE | 2023-02-26 17:23 | US ---
EXAMINATION TYPE: US transvaginal DATE OF EXAM: 02/26/2023 COMPARISON: US TA pelvis 2018, CT 2018 CLINICAL INDICATION: Female, 27 years old with history of vag bleeding 2 weeks; Vaginal bleeding x 2 weeks. Cramping. . TECHNIQUE: Transvaginal (TV). Date of LMP: 01/30/2023 EXAM MEASUREMENTS: Uterus: 8.6 x 5.3 x 4.1 cm Endometrial Stripe: 0.32 cm Right Ovary: 3.4 x 2.4 x 2.0 cm Left Ovary: 3.9 x 2.2 x 2.3 cm 1. Uterus: Anteverted 2. Endometrium: 0.32 cm, thin for Day 28 of cycle, LMP 01/30/23. 3. Right Ovary: Largest anechoic area=1.1 x 1.2 x 1.0 cm. 4. Left Ovary: Appears wnl Spectral, color and waveform doppler imaging shows arterial and venous flow within the ovaries. 5. Bilateral Adnexa: Prominent vessels seen within the left adnexa measuring 6.5 mm. Fluid seen in CDS. Likely physiologic. 6. Posterior cul-de-sac: Minimal fluid seen. Likely physiologic. IMPRESSION: No acute pelvic process.
--- NOTE | 2023-02-26 18:11 | ED ---
Female Urogenital HPI - General Chief complaint: Vaginal Bleeding Stated complaint: vaginal bleeding Time Seen by Provider: 02/26/23 16:03 Source: patient Mode of arrival: ambulatory Limitations: no limitations - History of Present Illness Initial comments: 19-year-old female presenting with chief complaint of vaginal bleeding. Patient states that she has had vaginal bleeding for the last 16 days. Her LMP was on February 01, she then started bleeding again on the . She admits to lower abdominal cramping. Denies . States that she was seen at that a different facility for this issue, she was told that her hemoglobin was stable and follow-up with her SUBSCRIPTION CLERK. Today she presents for continued bleeding with large clots. No dizziness or lightheadedness. No chest pain or difficulty breathing. No dysuria. No purulent discharge. - Related Data Previous Rx's Medication Instructions Recorded HYDROcodone/APAP 5-325MG [[place] 1 each PO Q12HR PRN 2 Days #4 tab 06/20/19 5-325] Allergies Allergy/AdvReac Type Severity Reaction Status Date / Time No Known Allergies Allergy Verified 02/26/23 15:37 Review of Systems ROS Statement: Those systems with pertinent positive or pertinent negative responses have been documented in the HPI. ROS Other: All systems not noted in ROS Statement are negative. Past Medical History Additional Past Medical History / Comment(s): migraines History of Any Multi-Drug Resistant Organisms: None Reported Past Surgical History: No Surgical Hx Reported Additional Past Surgical History / Comment(s): [place] tooth extraction Past Anesthesia/Blood Transfusion Reactions: No Reported Reaction Past Psychological History: No Psychological Hx Reported Smoking Status: Never smoker Past Alcohol Use History: Occasional Past Drug Use History: None Reported - Past Family History Mother Family Medical History: Cancer Additional Family Medical History / Comment(s): Breast Cancer Father Additional Family Medical History / Comment(s): migraines. General Exam Limitations: no limitations General appearance: alert, in no apparent distress Head exam: Present: atraumatic, normocephalic, normal inspection Eye exam: Present: normal appearance, EOMI. Absent: scleral icterus, pe riorbital swelling Neck exam: Present: normal inspection, full ROM Respiratory exam: Present: normal lung sounds bilaterally. Absent: respiratory distress, wheezes, rales, rhonchi, stridor Cardiovascular Exam: Present: regular rate, normal rhythm, normal heart sounds. Absent: systolic murmur, diastolic murmur, rubs, gallop, clicks GI/Abdominal exam: Present: soft. Absent: distended, tenderness, guarding, rebound, rigid Neurological exam: Present: alert, oriented X3, CN II-XII intact Psychiatric exam: Present: normal affect, normal mood Skin exam: Present: warm, dry, intact, normal color. Absent: rash Course Vital Signs 02/26/23 02/26/23 15:35 18:44 Temperature 98.9 F Pulse Rate 86 77 Respiratory 20 18 Rate Blood Pressure 108/67 106/67 O2 Sat by Pulse 99 100 Oximetry Medical Decision Making - Medical Decision Making Was pt. sent in by a medical professional or institution (, PA, SCHOOL AIDE, urgent care, hospital, or fdc...) When possible be specific @ -No Did you speak to anyone other than the patient for history (EMS, parent, family, police, friend...)? What history was obtained from this source @ -No Did you review nursing and triage notes (agree or disagree)? Why? @ -I reviewed and agree with nursing and triage notes Were old charts reviewed (outside hosp., previous admission, EMS record, old EKG, old radiological studies, urgent care reports/EKG's, fdc records)? Report findings @ -No old charts were reviewed Differential Diagnosis (chest pain, altered mental status, abdominal pain women, abdominal pain men, vaginal bleeding, weakness, fever, dyspnea, syncope, headache, dizziness, GI bleed, back pain, seizure, CVA, palpatations, mental health, musculoskeletal)? @ -MDM Differential Vaginal Bleeding: Spontaneous , threatened , molar , ectopic , bloody show, incompetent cervix, abruptioplacenta, placenta previa, uterine rupture, dysfunctional uterine bleeding, hemorrhage, uterine fibroids. ... This is not meant to be an all-inclusive list EKG interpreted by me (3pts min.). @ -As above X-rays interpreted by me (1pt min.). @ -None done CT interpreted by me (1pt min.). @ -None done U/S interpreted by me (1pt. min.). @ -Ultrasound shows no acute pelvic process What testing was considered but not performed or refused? (CT, X-rays, U/S, labs)? Why? @ -None What meds were considered but not given or refused? Why? @ -None Did you discuss the management of the patient with other professionals (professionals i.e. , PA, SCHOOL AIDE, lab, RT, psych nurse, nursing home social worker, dispatch machine runner, teacher, policy officer, comp field case manager)? Give summary @ -No Was smoking cessation discussed for >3mins.? @ -No Was critical care preformed (if so, how long)? @ -No Were there social determinants of health that impacted care today? How? (Homelessness, low income, unemployed, alcoholism, drug addiction, transportation, low edu. Level, literacy, decrease access to med. care, half-way, rehab)? @ -No Was there de-escalation of care discussed even if they declined (Discuss DNR or withdrawal of care, Hospice)? DNR status @ -No What co-morbidities impacted this encounter? (DM, HTN, Smoking, COPD, CAD, Cancer, CVA, ARF, Chemo, Hep., AIDS, mental health diagnosis, sleep apnea, morbid obesity)? @ -None Was patient admitted / discharged? Hospital course, mention meds given and route, prescriptions, significant lab abnormalities, going to OR and other pertinent info. @ -27-year-old female presenting with chief complaint of vaginal bleeding ongoing for 16 days. Admits to pelvic cramping. On physical examination there is no lower abdominal tenderness. Hemoglobin is stable at 12.2. Negative hCG. Ultrasound shows no acute process. On reassessment patient is resting comfortably. She is educated on today's findings and instructed to follow-up with her SUBSCRIPTION CLERK Dr. Laguna. Follow-up with PCP. Report back to ER with any new or worsening symptoms. Discussed return parameters and answered all questions. Patient conveyed verbal understanding and agreed to the plan. I discussed this case in detail with my attending Dr. Hernández Undiagnosed new problem with uncertain prognosis? @ -No Drug Therapy requiring intensive monitoring for toxicity (Heparin, Nitro, Insulin, Cardizem)? @ -No Were any procedures done? @ -No Diagnosis/symptom? @ -Dysfunctional uterine bleeding Acute, or Chronic, or Acute on Chronic? @ -Acute Uncomplicated (without systemic symptoms) or Complicated (systemic symptoms)? @ -Uncomplicated Side effects of treatment? @ -No Exacerbation, Progression, or Severe Exacerbation? @ -No Poses a threat to life or bodily function? How? (Chest pain, [place], PR, pneumonia, PE, COPD, DKA, ARF, appy, cholecystitis, CVA, Diverticulitis, Homicidal, Suicidal, threat to staff... and all critical care pts) @ -No - Lab Data Result diagrams: 02/26/23 16:31 02/26/23 16:31 Lab Results 02/26/23 02/26/23 02/26/23 Range/Units 16:31 16:31 16:31 WBC 7.0 (3.8-10.6) k/uL RBC 4.18 (3.80-5.40) m/uL Hgb 12.2 (11.4-16.0) gm/dL Hct 35.5 (34.0-46.0) % MCV 85.0 (80.0-100.0) fL MCH 29.1 (25.0-35.0) pg MCHC 34.3 (31.0-37.0) g/dL RDW 13.5 (11.5-15.5) % Plt Count 268 (150-450) k/uL MPV 8.9 Neutrophils % 67 % Lymphocytes % 23 % Monocytes % 6 % Eosinophils % 2 % Basophils % 0 % Neutrophils # 4.7 (1.3-7.7) k/uL Lymphocytes # 1.6 (1.0-4.8) k/uL Monocytes # 0.4 (0-1.0) k/uL Eosinophils # 0.2 (0-0.7) k/uL Basophils # 0.0 (0-0.2) k/uL PT 10.7 (9.0-12.0) sec INR 1.0 (<1.2) APTT 26.3 (22.0-30.0) sec Sodium 137 (137-145) mmol/L Potassium 4.3 (3.5-5.1) mmol/L Chloride 106 (98-107) mmol/L Carbon Dioxide 24 (22-30) mmol/L Anion Gap 7 mmol/L BUN 14 (7-17) mg/dL Creatinine 0.74 (0.52-1.04) mg/dL Est GFR (CKD-EPI)AfAm >90 (>60 ml/min/1.73 sqM) Est GFR (CKD-EPI)NonAf >90 (>60 ml/min/1.73 sqM) Glucose 93 (74-99) mg/dL Calcium 9.2 (8.4-10.2) mg/dL Total Bilirubin 0.4 (0.2-1.3) mg/dL AST 21 (14-36) U/L ALT 12 (4-34) U/L Alkaline Phosphatase 46 (38-126) U/L Total Protein 7.6 (6.3-8.2) g/dL Albumin 4.2 (3.5-5.0) g/dL HCG, Quant <2.4 mIU/mL Urine Color Urine Appearance (Clear) Urine pH (5.0-8.0) Ur Specific [place] (1.001-1.035) Urine Protein (Negative) Urine Glucose (UA) (Negative) Urine Ketones (Negative) Urine Blood (Negative) Urine Nitrite (Negative) Urine Bilirubin (Negative) Urine Urobilinogen (<2.0) mg/dL Ur Leukocyte Esterase (Negative) Urine RBC (0-5) /hpf Urine WBC (0-5) /hpf Ur Squamous Epith Cells (0-4) /hpf Amorphous Sediment (None) /hpf 02/26/23 Range/Units 16:34 WBC (3.8-10.6) k/uL RBC (3.80-5.40) m/uL Hgb (11.4-16.0) gm/dL Hct (34.0-46.0) % MCV (80.0-100.0) fL MCH (25.0-35.0) pg MCHC (31.0-37.0) g/dL RDW (11.5-15.5) % Plt Count (150-450) k/uL MPV Neutrophils % % Lymphocytes % % Monocytes % % Eosinophils % % Basophils % % Neutrophils # (1.3-7.7) k/uL Lymphocytes # (1.0-4.8) k/uL Monocytes # (0-1.0) k/uL Eosinophils # (0-0.7) k/uL Basophils # (0-0.2) k/uL PT (9.0-12.0) sec INR (<1.2) APTT (22.0-30.0) sec Sodium (137-145) mmol/L Potassium (3.5-5.1) mmol/L Chloride (98-107) mmol/L Carbon Dioxide (22-30) mmol/L Anion Gap mmol/L BUN (7-17) mg/dL Creatinine (0.52-1.04) mg/dL Est GFR (CKD-EPI)AfAm (>60 ml/min/1.73 sqM) Est GFR (CKD-EPI)NonAf (>60 ml/min/1.73 sqM) Glucose (74-99) mg/dL Calcium (8.4-10.2) mg/dL Total Bilirubin (0.2-1.3) mg/dL AST (14-36) U/L ALT (4-34) U/L Alkaline Phosphatase (38-126) U/L Total Protein (6.3-8.2) g/dL Albumin (3.5-5.0) g/dL HCG, Quant mIU/mL Urine Color Light Yellow Urine Appearance Clear (Clear) Urine pH 7.0 (5.0-8.0) Ur Specific [place] 1.014 (1.001-1.035) Urine Protein Negative (Negative) Urine Glucose (UA) Negative (Negative) Urine Ketones Negative (Negative) Urine Blood Large H (Negative) Urine Nitrite Negative (Negative) Urine Bilirubin Negative (Negative) Urine Urobilinogen <2.0 (<2.0) mg/dL Ur Leukocyte Esterase Negative (Negative) Urine RBC >182 H (0-5) /hpf Urine WBC 2 (0-5) /hpf Ur Squamous Epith Cells <1 (0-4) /hpf Amorphous Sediment Occasional H (None) /hpf Disposition Clinical Impression: Dysfunctional uterine bleeding Disposition: HOME SELF-CARE Condition: Good Instructions (If sedation given, give patient instructions): Abnormal (Dysfunctional) Uterine Bleeding (ED) Additional Instructions: Follow-up with SUBSCRIPTION CLERK. Report back to ER if any new or worsening symptoms. Is patient prescribed a controlled substance at d/c from ED?: No Referrals: Power Jaramillo DO [Primary Care Provider] - 1-2 days Russel Laguna MD [STAFF PHYSICIAN] - 03/01/23 Time of Disposition: 18:08
[2023-02-26 18:45] VITALS: BP 106/67; PULSE 77; RESP 18
== END 2023-02-26 18:45 | disposition home or self-care (01) ==
LOC: EC 15:10
DX: N93.8 Other specified abnormal uterine and vaginal bleeding (principal)
CPT/HCPCS: 36415; 76830; 80053; 81001; 84702; 85025; 85610; 85730; 93975; 96360; 99284

== ENCOUNTER 2024-06-30 12:24 | Emergency (ER) | payer OTHER ==
[2024-06-30] MEDS: OXYMETAZOLINE 0.05% NASL SPRAY 1 SPRAY BOTTLE NASAL STA (13:30)
--- NOTE | 2024-06-30 13:33 | ED ---
ENT HPI - General Chief complaint: ENT Stated complaint: nose bleed Time Seen by Provider: 06/30/24 13:31 Source: patient, RN notes reviewed Mode of arrival: ambulatory Limitations: no limitations - History of Present Illness Initial comments: 28-year-old female with no significant past medical history presenting for evaluation of nosebleeds. Patient reports over the past 2 months she has been getting nosebleeds approximately twice daily, lasting about 15 minutes. States sometimes nosebleeds are on the left and sometimes they are in the right. She does have a history of nosebleeds during the dry season however has never been this frequent. Patient is concerned because she started to feel fatigued and lightheaded. She does have a upcoming ENT appointment on July 13 in [place]. Denies blood thinners. Denies trauma or injury to the face. - Related Data Previous Rx's Medication Instructions Recorded HYDROcodone/APAP 5-325MG [[place] 1 each PO Q12HR PRN 2 Days #4 tab 06/20/19 5-325] Allergies Allergy/AdvReac Type Severity Reaction Status Date / Time No Known Allergies Allergy Verified 02/26/23 15:37 Review of Systems ROS Statement: Those systems with pertinent positive or pertinent negative responses have been documented in the HPI. ROS Other: All systems not noted in ROS Statement are negative. Past Medical History Additional Past Medical History / Comment(s): migraines History of Any Multi-Drug Resistant Organisms: None Reported Past Surgical History: No Surgical Hx Reported Additional Past Surgical History / Comment(s): [place] tooth extraction Past Anesthesia/Blood Transfusion Reactions: No Reported Reaction Past Psychological History: No Psychological Hx Reported Smoking Status: Never smoker Past Alcohol Use History: Occasional Past Drug Use History: None Reported - Past Family History Mother Family Medical History: Cancer Additional Family Medical History / Comment(s): Breast Cancer Father Additional Family Medical History / Comment(s): migraines. General Exam Limitations: no limitations General appearance: alert, in no apparent distress Head exam: Present: atraumatic, normocephalic, normal inspection Eye exam: Present: normal appearance, PERRL, EOMI. Absent: scleral icterus, conjunctival injection, periorbital swelling ENT exam: Present: normal exam, normal oropharynx, mucous membranes moist, other (Nares patent bilaterally, mild amount of dried blood in the left nare. No visible hematomas or active bleeds) Neck exam: Present: normal inspection. Absent: tenderness, meningismus, lymphadenopathy Neurological exam: Present: alert, oriented X3 Psychiatric exam: Present: normal affect, normal mood Skin exam: Present: warm, dry, intact, normal color. Absent: rash Course Vital Signs 06/30/24 06/30/24 12:50 15:43 Temperature 97.7 F 98.3 F Pulse Rate 68 86 Respiratory 15 17 Rate Blood Pressure 114/62 99/65 O2 Sat by Pulse 96 99 Oximetry Medical Decision Making - Medical Decision Making Was pt. sent in by a medical professional or institution (, DONNA, COSMETICS MACHINE OPERATOR, urgent care, hospital, or prison...) When possible be specific @ -No Did you speak to anyone other than the patient for history (EMS, parent, family, police, friend...)? What history was obtained from this source @ -No Did you review nursing and triage notes (agree or disagree)? Why? @ -I reviewed and agree with nursing and triage notes Were old charts reviewed (outside hosp., previous admission, EMS record, old EKG, old radiological studies, urgent care reports/EKG's, prison records)? Report findings @ -No old charts were reviewed Differential Diagnosis (chest pain, altered mental status, abdominal pain women, abdominal pain men, vaginal bleeding, weakness, fever, dyspnea, syncope, headache, dizziness, GI bleed, back pain, seizure, CVA, palpatations, mental health, musculoskeletal)? @ -Posterior epistaxis, anterior epistaxis, anticoagulopathy EKG interpreted by me (3pts min.). @ -None X-rays interpreted by me (1pt min.). @ -None done CT interpreted by me (1pt min.). @ -None done U/S interpreted by me (1pt. min.). @ -None done What testing was considered but not performed or refused? (CT, X-rays, U/S, labs)? Why? @ -None What meds were considered but not given or refused? Why? @ -None Did you discuss the management of the patient with other professionals (professionals i.e. DONNA Munson, COSMETICS MACHINE OPERATOR, lab, RT, psych nurse, social and human services assistant, sheet rock nailer, teacher, correctional officer sergeant, pillowcase folder)? Give summary @ -No Was smoking cessation discussed for >3mins.? @ -No Was critical care preformed (if so, how long)? @ -No Were there social determinants of health that impacted care today? How? (Homelessness, low income, unemployed, alcoholism, drug addiction, tr ansportation, low edu. Level, literacy, decrease access to med. care, [facility] [facility], rehab)? @ -No Was there de-escalation of care discussed even if they declined (Discuss DNR or withdrawal of care, Hospice)? DNR status @ -No What co-morbidities impacted this encounter? (DM, HTN, Smoking, COPD, CAD, Cancer, CVA, ARF, Chemo, Hep., AIDS, mental health diagnosis, sleep apnea, morbid obesity)? @ -None Was patient admitted / discharged? Hospital course, mention meds given and route, prescriptions, significant lab abnormalities, going to OR and other pertinent info. @ -Discharge. This is a 28-year-old female presenting for epistaxis. No trauma or injury. No blood thinners. Nasal clamp and Afrin spray applied which resolved bleed. Lab work unremarkable. Hemoglobin stable. Patient has upcoming ENT appointment for July 13. Appropriate return precautions and follow-up care discussed. Case was discussed with my ED attending Dr. Roberts Undiagnosed new problem with uncertain prognosis? @ -No Drug Therapy requiring intensive monitoring for toxicity (Heparin, Nitro, Insulin, Cardizem)? @ -No Were any procedures done? @ -No Diagnosis/symptom? @ -Epistaxis Acute, or Chronic, or Acute on Chronic? @ -Acute Uncomplicated (without systemic symptoms) or Complicated (systemic symptoms)? @ -Uncomplicated Side effects of treatment? @ -No Exacerbation, Progression, or Severe Exacerbation? @ -No Poses a threat to life or bodily function? How? (Chest pain, [place], [place], pneumonia, PE, COPD, DKA, ARF, appy, cholecystitis, CVA, Diverticulitis, Homicidal, Suicidal, threat to staff... and all critical care pts) @ -No - Lab Data Result diagrams: 06/30/24 13:30 06/30/24 13:30 Lab Results 06/30/24 06/30/24 Range/Units 13:30 13:30 WBC 9.7 (3.8-10.6) k/uL RBC 4.47 (3.80-5.40) m/uL Hgb 13.1 (11.4-16.0) gm/dL Hct 38.7 (34.0-46.0) % MCV 86.6 (80.0-100.0) fL MCH 29.3 (25.0-35.0) pg MCHC 33.8 (31.0-37.0) g/dL RDW 13.4 (11.5-15.5) % Plt Count 281 (150-450) k/uL MPV 8.6 Neutrophils % 75 % Lymphocytes % 16 % Monocytes % 6 % Eosinophils % 1 % Basophils % 0 % Neutrophils # 7.3 (1.3-7.7) k/uL Lymphocytes # 1.5 (1.0-4.8) k/uL Monocytes # 0.6 (0-1.0) k/uL Eosinophils # 0.1 (0-0.7) k/uL Basophils # 0.0 (0-0.2) k/uL Sodium 137 (137-145) mmol/L Potassium 4.8 (3.5-5.1) mmol/L Chloride 104 (98-107) mmol/L Carbon Dioxide 22 (22-30) mmol/L Anion Gap 11 mmol/L BUN 10 (7-17) mg/dL Creatinine 0.62 (0.52-1.04) mg/dL Est GFR (CKD-EPI)AfAm >90 (>60 ml/min/1.73 sqM) Est GFR (CKD-EPI)NonAf >90 (>60 ml/min/1.73 sqM) Glucose 82 (74-99) mg/dL Calcium 10.0 (8.4-10.2) mg/dL Total Bilirubin 0.6 (0.2-1.3) mg/dL AST 23 (14-36) U/L ALT 10 (4-34) U/L Alkaline Phosphatase 52 (38-126) U/L Total Protein 8.1 (6.3-8.2) g/dL Albumin 4.9 (3.5-5.0) g/dL Disposition Clinical Impression: Epistaxis Disposition: HOME SELF-CARE Condition: Stable Instructions (If sedation given, give patient instructions): Nosebleed (ED) Additional Instructions: Use Afrin as needed as discussed. Follow-up for ENT appointment. Please return to the Emergency Department if symptoms worsen or any other concerns. Is patient prescribed a controlled substance at d/c from ED?: No Referrals: Power Jaramillo DO [Primary Care Provider] - 1-2 days Time of Disposition: 15:30
[2024-06-30 14:01] LABS: Basophils % (A) 0 %; Eosinophils # (A) 0.1 k/uL (0-0.7); Eosinophils % (A) 1 %; HCT 38.7 % (34.0-46.0); HGB 13.1 gm/dL (11.4-16.0); Lymphocytes # (A) 1.5 k/uL (1.0-4.8); Lymphocytes % (A) 16 %; MCH 29.3 pg (25.0-35.0); MCHC 33.8 g/dL (31.0-37.0); MCV 86.6 fL (80.0-100.0); Mean Platelet Volume 8.6; Monocytes # (A) 0.6 k/uL (0-1.0); Monocytes % (A) 6 %; Neutrophils # (A) 7.3 k/uL (1.3-7.7); Neutrophils % (A) 75 %; Platelet Count 281 k/uL (150-450); RBC 4.47 m/uL (3.80-5.40); RDW 13.4 % (11.5-15.5); WBC 9.7 k/uL (3.8-10.6)
[2024-06-30 14:17] LABS: ALT 10 U/L (4-34); AST 23 U/L (14-36); African American GFR (CKD) >90 (>60 ml/min/1.73 sqM); Albumin 4.9 g/dL (3.5-5.0); Alkaline Phosphatase 52 U/L (38-126); Anion Gap 11 mmol/L; Blood Urea Nitrogen 10 mg/dL (7-17); Carbon Dioxide 22 mmol/L (22-30); Chloride 104 mmol/L (98-107); Glucose 82 mg/dL (74-99); Non-African American GFR(CKD) >90 (>60 ml/min/1.73 sqM); Potassium 4.8 mmol/L (3.5-5.1); Sodium 137 mmol/L (137-145); Total Bilirubin 0.6 mg/dL (0.2-1.3); Total Protein 8.1 g/dL (6.3-8.2)
[2024-06-30 15:45] VITALS: BP 99/65; PULSE 86; RESP 17; TEMP 98.3
== END 2024-06-30 15:43 | disposition home or self-care (01) ==
LOC: EC 12:24
DX: R04.0 Epistaxis (principal)
CPT/HCPCS: 36415; 80053; 85025; 99284